=== PATIENT | male | born 1965 | race African-American/Black ===

== ENCOUNTER 2016-10-09 06:52 | Emergency (ER) | payer MEDICARE, MEDICAID ==
[~2016-10-09] VITALS: Ht 172.7 cm; Wt 115.8 kg
[~2016-10-09 06:52] MED LIST: ALBU0.63 NEB; ALBU8.5H3 INH; AMLO10TA2 PO; CYCL-259 PO; FLUT1DIS3 INH; HYDR25TA6 PO; IPRA15SP2 INH; LACT10SO5 PO; LEVO750T26 PO; LISI40TA PO; MORP-52 PO; OXYC-302 PO; OXYC10TA6 PO; OXYC5TAB3 PO; SIMV20TA3 PO; TAMS-11 PO; TRAM100T13 PO
[2016-10-09] MEDS ORDERED: ALBU18HF INH (07:10)
[2016-10-09] MEDS ORDERED: FLUT1BLS INH (07:10)
[2016-10-09] MEDS ORDERED: FLUT1DIS3 INH (07:11)
[2016-10-09] MEDS ORDERED: ALBUTEROL/IPRATROPIUM 2.5MG/0.5MG, 3 ML ONE ×2 (07:18→07:59)
[2016-10-09] MEDS ORDERED: TRAZ100T15 PO (07:19)
[2016-10-09] MEDS ORDERED: ALBUTEROL/IPRATROPIUM 2.5MG/0.5MG, 3 ML NPPB ONE ×2 (07:30→08:00)
[2016-10-09 08:38] VITALS: BP 123/88
== END 2016-10-09 08:40 | disposition home or self-care (01) ==
LOC: ED 08:34
DX: J45.901 Unspecified asthma with (acute) exacerbation (principal); I10 Essential (primary) hypertension
CPT/HCPCS: 93005; 94640; 99284; J7512; J7620

== ENCOUNTER 2017-02-17 14:34 | Inpatient (IN) | payer MEDICARE, MEDICAID ==
[~2017-02-17] VITALS: Ht 172.7 cm; Wt 112.1 kg
[~2017-02-17 14:34] MED LIST changes: +ALBU18HF INH; -ALBU8.5H3 INH; +ALBU8.5H8 INH; +FLUT1BLS INH; +TRAZ100T15 PO
[2017-02-17 14:57] LABS: HEMATOCRIT 48.7 % (39.2-51.8); HEMOGLOBIN 16.5 g/dL (13.7-18.0); WHITE BLOOD COUNT 13.2 x10^3/uL (3.4-10)
[2017-02-17] MEDS ORDERED: SODIUM CHLORIDE FLUSH 10ML SYR IVF ONE (15:00)
[2017-02-17] MEDS ORDERED: SODIUM CHLORIDE 0.9% 1,000ML IVBOLUS ONE ×2 (15:00→20:00)
[2017-02-17 15:56] LABS: ASPARTATE AMINO TRANSFERASE 6 U/L (15-37); BLOOD UREA NITROGEN 56 mg/dL (7-18)
[2017-02-17 16:02] LABS: IS PT STATUS REG ER OR PRE ER? YES
[2017-02-17] MEDS ORDERED: OMNIPAQUE 350 MG/ML, 100ML BOTTLE ONE (16:13)
[2017-02-17] MEDS ORDERED: MORPHINE SULFATE 4 MG/ML, 1ML IVPush PRN (18:00)
[2017-02-17] MEDS ORDERED: METRONIDAZOLE PMX 500MG/100ML 100 ML IVPB ONE (18:00)
[2017-02-17] MEDS ORDERED: ONDANSETRON 2MG/ML, 2ML IVPush ONE (18:00)
[2017-02-17] MEDS ORDERED: METRONIDAZOLE PMX 500MG/100ML 100 ML ONE (18:03)
[2017-02-17] MEDS ORDERED: ONDANSETRON 2MG/ML, 2ML ONE (18:04)
[2017-02-17] MEDS ORDERED: morphine SULFATE 10 MG/ML, 1ML ONE (18:04)
[2017-02-17] MEDS ORDERED: CIPROFLOXACIN/PMX 400MG/200ML 100 ML IVPB ONE (18:30)
[2017-02-17] MEDS ORDERED: CALCIUM GLUCONATE 4.6 MEQ in SODIUM CHLORIDE 0.9% 50 ML IV ONE (18:30)
[2017-02-17] MEDS ORDERED: SODIUM CHLORIDE FLUSH 10ML SYR IVF PRN (19:30)
[2017-02-17] MEDS: SODIUM BICARBONATE 8.4% 75 MEQ in SODIUM CHLORIDE 0.45% 1,000 ML IV SCH (20:22)
[2017-02-17] MEDS: NICOTINE 14MG/24 HR PATCH.TD24 TD SCH (20:30)
[2017-02-17] MEDS ORDERED: BISACODYL 10 MG SUPP PR PRN (20:30)
[2017-02-17] MEDS: HEPARIN 5,000 UNITS/ML, 1ML SQ SCH (20:58)
[2017-02-17] MEDS: METRONIDAZOLE PMX 500MG/100ML 100 ML IV SCH (20:58)
[2017-02-17] MEDS ORDERED: FAMOTIDINE 20 MG/2 ML IVPush SCH (21:00)
[2017-02-17 21:15] VITALS: BP 81/55
[2017-02-17 21:37] LABS: IS PT STATUS REG ER OR PRE ER? NO
[2017-02-17] MEDS: ONDANSETRON 2MG/ML, 2ML IVPush PRN (22:07)
[2017-02-18] MEDS ORDERED: SODIUM CHLORIDE 0.9% 1,000ML IV ONE (00:30)
[2017-02-18] MEDS ORDERED: ALBUTEROL/IPRATROPIUM 2.5MG/0.5MG, 3 ML ONE ×2 (03:14→07:23)
[2017-02-18] MEDS: HEPARIN 5,000 UNITS/ML, 1ML SQ SCH ×3 (04:32→19:41)
[2017-02-18] MEDS: METRONIDAZOLE PMX 500MG/100ML 100 ML IV SCH ×3 (04:32→19:41)
[2017-02-18 04:40] LABS: HEMATOCRIT 43.7 % (39.2-51.8); HEMOGLOBIN 15.1 g/dL (13.7-18.0); WHITE BLOOD COUNT 11.4 x10^3/uL (3.4-10)
[2017-02-18 04:51] LABS: ASPARTATE AMINO TRANSFERASE 13 U/L (15-37); BLOOD UREA NITROGEN 65 mg/dL (7-18)
[2017-02-18 04:57] LABS: IS PT STATUS REG ER OR PRE ER? NO
[2017-02-18] MEDS: SODIUM BICARBONATE 8.4% 75 MEQ in SODIUM CHLORIDE 0.45% 1,000 ML IV SCH (05:15)
[2017-02-18 06:00] VITALS: BP 106/52
[2017-02-18] MEDS ORDERED: SODIUM BICARBONATE 8.4% 75 MEQ in SODIUM CHLORIDE 0.45% 1,000 ML IV SCH (07:00)
[2017-02-18] MEDS ORDERED: MAGNESIUM SULFATE PMX 2GM/50ML 50 ML IV ONE (07:00)
[2017-02-18] MEDS: ALBUTEROL/IPRATROPIUM 2.5MG/0.5MG, 3 ML NPPB SCH ×2 (08:43→19:43)
[2017-02-18] MEDS: ERGOCALCIFEROL 50,000 UNIT CAPSULE PO SCH (09:00)
[2017-02-18] MEDS: FLUTICASONE/VILANTEROL 200-25MCG/INH INH SCH (09:00)
[2017-02-18] MEDS: PANTOPRAZOLE 40 MG IV IVPush SCH (09:59)
[2017-02-18] MEDS: morphine SULFATE 10 MG/ML, 1ML IVPush PRN (10:10)
[2017-02-18] MEDS ORDERED: MIDAZOLAM 1 MG/ML, 5ML ONE (13:27)
[2017-02-18] MEDS ORDERED: FENTANYL PF 100 MCG/2ML ONE (13:27)
[2017-02-18] MEDS ORDERED: SIMETHICONE DROPS 40 MG/0.6 ML BOTTLE ONE (15:04)
[2017-02-18 15:11] LABS: DAU SCREEN DISCLAIMER
[2017-02-18] MEDS: CIPROFLOXACIN/PMX 400MG/200ML 200 ML IV SCH (18:36)
[2017-02-18] MEDS: NICOTINE 14MG/24 HR PATCH.TD24 TD SCH (19:41)
[2017-02-18] MEDS: TAMSULOSIN 0.4 MG CAP.ER.24H PO SCH (19:41)
[2017-02-19 04:00] VITALS: BP 110/64
[2017-02-19] MEDS: HEPARIN 5,000 UNITS/ML, 1ML SQ SCH ×3 (04:06→21:18)
[2017-02-19] MEDS: METRONIDAZOLE PMX 500MG/100ML 100 ML IV SCH ×3 (04:06→21:18)
[2017-02-19 04:13] LABS: HEMATOCRIT 41.4 % (39.2-51.8); WHITE BLOOD COUNT 17.2 x10^3/uL (3.4-10)
[2017-02-19 04:26] LABS: DIFF TOTAL CELLS COUNTED 100 CELL DIFF
[2017-02-19 04:29] LABS: VERIFY COUNTS? YES
[2017-02-19 04:36] LABS: ASPARTATE AMINO TRANSFERASE 16 U/L (15-37); BLOOD UREA NITROGEN 56 mg/dL (7-18)
[2017-02-19] MEDS: ALBUTEROL/IPRATROPIUM 2.5MG/0.5MG, 3 ML NPPB SCH ×2 (09:00→09:48)
[2017-02-19] MEDS: FLUTICASONE/VILANTEROL 200-25MCG/INH INH SCH (09:00)
[2017-02-19] MEDS: PANTOPRAZOLE 40 MG IV IVPush SCH (09:05)
[2017-02-19] MEDS: CIPROFLOXACIN/PMX 400MG/200ML 200 ML IV SCH (18:11)
[2017-02-19] MEDS: ACETAMINOPHEN 325 MG TABLET PO PRN (18:12)
[2017-02-19] MEDS: TAMSULOSIN 0.4 MG CAP.ER.24H PO SCH (19:22)
[2017-02-19] MEDS: ONDANSETRON 2MG/ML, 2ML IVPush PRN (19:31)
[2017-02-19 20:12] VITALS: BP 154/91
[2017-02-19] MEDS: NICOTINE 14MG/24 HR PATCH.TD24 TD SCH (20:30)
[2017-02-19] MEDS: morphine SULFATE 10 MG/ML, 1ML IVPush PRN (22:06)
[2017-02-20 02:05] VITALS: BP 152/79
[2017-02-20] MEDS: HEPARIN 5,000 UNITS/ML, 1ML SQ SCH ×3 (04:19→20:30)
[2017-02-20] MEDS: METRONIDAZOLE PMX 500MG/100ML 100 ML IV SCH ×3 (04:54→20:29)
[2017-02-20 05:32] LABS: HEMATOCRIT 43.9 % (39.2-51.8); HEMOGLOBIN 15.1 g/dL (13.7-18.0); WHITE BLOOD COUNT 17.8 x10^3/uL (3.4-10)
[2017-02-20 05:48] LABS: BLOOD UREA NITROGEN 19 mg/dL (7-18)
[2017-02-20 05:52] LABS: ASPARTATE AMINO TRANSFERASE 12 U/L (15-37)
[2017-02-20 07:25] VITALS: BP 164/100
[2017-02-20] MEDS: ALBUTEROL/IPRATROPIUM 2.5MG/0.5MG, 3 ML NPPB SCH ×2 (09:00→19:35)
[2017-02-20] MEDS: FLUTICASONE/VILANTEROL 200-25MCG/INH INH SCH (09:00)
[2017-02-20] MEDS: PANTOPROZOLE 40MG TABLET PO SCH (09:48)
[2017-02-20] MEDS ORDERED: AMLODIPINE 5 MG TABLET PO SCH (10:30)
[2017-02-20 13:28] VITALS: BP 150/95
[2017-02-20] MEDS: CIPROFLOXACIN/PMX 400MG/200ML 200 ML IV SCH (17:52)
[2017-02-20] MEDS: ACETAMINOPHEN 325 MG TABLET PO PRN (17:58)
[2017-02-20 19:06] VITALS: BP 160/100
[2017-02-20] MEDS: TAMSULOSIN 0.4 MG CAP.ER.24H PO SCH (19:31)
[2017-02-20] MEDS: NICOTINE 14MG/24 HR PATCH.TD24 TD SCH (20:30)
[2017-02-21 02:45] VITALS: BP 164/106
[2017-02-21] MEDS: HEPARIN 5,000 UNITS/ML, 1ML SQ SCH ×3 (04:30→20:30)
[2017-02-21] MEDS: METRONIDAZOLE PMX 500MG/100ML 100 ML IV SCH ×3 (04:34→21:28)
[2017-02-21] MEDS: ACETAMINOPHEN 325 MG TABLET PO PRN ×2 (04:41→19:32)
[2017-02-21 05:26] LABS: HEMATOCRIT 44.5 % (39.2-51.8); HEMOGLOBIN 14.9 g/dL (13.7-18.0); WHITE BLOOD COUNT 15.7 x10^3/uL (3.4-10)
[2017-02-21 05:52] LABS: ASPARTATE AMINO TRANSFERASE 7 U/L (15-37); BLOOD UREA NITROGEN 8 mg/dL (7-18)
[2017-02-21] MEDS: AMLODIPINE 5 MG TABLET PO SCH ×2 (07:30→08:44)
[2017-02-21 08:21] VITALS: BP 154/112
[2017-02-21] MEDS: FLUTICASONE/VILANTEROL 200-25MCG/INH INH SCH (08:38)
[2017-02-21] MEDS: PANTOPROZOLE 40MG TABLET PO SCH (08:38)
[2017-02-21] MEDS: ERGOCALCIFEROL 50,000 UNIT CAPSULE PO SCH (08:38)
[2017-02-21] MEDS: ALBUTEROL/IPRATROPIUM 2.5MG/0.5MG, 3 ML NPPB SCH ×2 (09:00→19:05)
[2017-02-21 13:23] VITALS: BP 149/94
[2017-02-21] MEDS: CIPROFLOXACIN/PMX 400MG/200ML 200 ML IV SCH (18:45)
[2017-02-21] MEDS: TAMSULOSIN 0.4 MG CAP.ER.24H PO SCH (18:48)
[2017-02-21 19:42] VITALS: BP 158/98
[2017-02-21] MEDS: NICOTINE 14MG/24 HR PATCH.TD24 TD SCH (20:30)
[2017-02-22 01:18] VITALS: BP 160/98
[2017-02-22] MEDS: HEPARIN 5,000 UNITS/ML, 1ML SQ SCH ×3 (03:46→20:10)
[2017-02-22] MEDS: METRONIDAZOLE PMX 500MG/100ML 100 ML IV SCH ×3 (05:31→21:45)
[2017-02-22 06:12] LABS: HEMOGLOBIN 15.2 g/dL (13.7-18.0); WHITE BLOOD COUNT 12.4 x10^3/uL (3.4-10)
[2017-02-22 06:23] LABS: BLOOD UREA NITROGEN 5 mg/dL (7-18)
[2017-02-22 07:26] VITALS: BP 157/102
[2017-02-22] MEDS: CIPROFLOXACIN/PMX 400MG/200ML 200 ML IV SCH ×2 (08:02→20:10)
[2017-02-22] MEDS: PANTOPROZOLE 40MG TABLET PO SCH (08:02)
[2017-02-22] MEDS: AMLODIPINE 5 MG TABLET PO SCH (08:03)
[2017-02-22] MEDS: FLUTICASONE/VILANTEROL 200-25MCG/INH INH SCH (08:03)
[2017-02-22] MEDS: ALBUTEROL/IPRATROPIUM 2.5MG/0.5MG, 3 ML NPPB SCH ×2 (08:25→20:00)
[2017-02-22 13:19] VITALS: BP 138/89
[2017-02-22] MEDS: ACETAMINOPHEN 325 MG TABLET PO PRN ×2 (13:35→23:58)
[2017-02-22] MEDS: TAMSULOSIN 0.4 MG CAP.ER.24H PO SCH (18:39)
[2017-02-22] MEDS ORDERED: BISACODYL 10 MG SUPP PR PRN ×2 (19:30→20:00)
[2017-02-22 19:37] VITALS: BP 136/90
[2017-02-22] MEDS: NICOTINE 14MG/24 HR PATCH.TD24 TD SCH (20:10)
[2017-02-23 03:37] VITALS: BP 152/88
[2017-02-23] MEDS: HEPARIN 5,000 UNITS/ML, 1ML SQ SCH ×2 (04:21→12:30)
[2017-02-23 05:13] LABS: HEMATOCRIT 46.5 % (39.2-51.8); HEMOGLOBIN 15.6 g/dL (13.7-18.0); WHITE BLOOD COUNT 13.8 x10^3/uL (3.4-10)
[2017-02-23 05:31] LABS: BLOOD UREA NITROGEN 6 mg/dL (7-18)
[2017-02-23] MEDS: METRONIDAZOLE PMX 500MG/100ML 100 ML IV SCH ×2 (05:59→13:30)
[2017-02-23 07:43] VITALS: BP 142/94
[2017-02-23] MEDS: FLUTICASONE/VILANTEROL 200-25MCG/INH INH SCH (08:49)
[2017-02-23] MEDS: PANTOPROZOLE 40MG TABLET PO SCH (08:49)
[2017-02-23] MEDS: AMLODIPINE 5 MG TABLET PO SCH (08:49)
[2017-02-23] MEDS: CIPROFLOXACIN/PMX 400MG/200ML 200 ML IV SCH (11:40)
[2017-02-23] MEDS ORDERED: AMLO5TAB2 PO (12:13)
[2017-02-23] MEDS ORDERED: PANT40TA5 PO (12:13)
[2017-02-23] MEDS ORDERED: ERGO500017 PO (12:13)
[2017-02-23] MEDS: ALBUTEROL/IPRATROPIUM 2.5MG/0.5MG, 3 ML NPPB SCH (12:35)
[2017-02-23 13:18] VITALS: BP 146/89
== END 2017-02-23 15:24 | disposition home or self-care (01) | DRG 682 ==
LOC: ED 16:26 → EDIP 19:05 → CCU 20:36 → 3NE 02-19 15:53
PROVIDERS: ADMIT Hospitalist; ATTEND Hospitalist
PROC: 02HV33Z Insertion of Infusion Device into Superior Vena Cava, Percutaneous Approach (ICD-10-PCS; principal; 2017-02-17)
PROC: B5181ZA Fluoroscopy of Superior Vena Cava using Low Osmolar Contrast, Guidance (ICD-10-PCS; 2017-02-17)
PROC: 0DJ08ZZ Inspection of Upper Intestinal Tract, Via Natural or Artificial Opening Endoscopic (ICD-10-PCS; 2017-02-18)
DX: N17.0 Acute kidney failure with tubular necrosis (principal); R65.11 Systemic inflammatory response syndrome (SIRS) of non-infectious origin with acute organ dysfunction; K55.059 Acute (reversible) ischemia of intestine, part and extent unspecified; I95.9 Hypotension, unspecified; E87.2 Acidosis; E44.1 Mild protein-calorie malnutrition; E66.01 Morbid (severe) obesity due to excess calories; E83.39 Other disorders of phosphorus metabolism; E87.1 Hypo-osmolality and hyponatremia; E83.42 Hypomagnesemia; E55.9 Vitamin D deficiency, unspecified; E78.5 Hyperlipidemia, unspecified; E83.51 Hypocalcemia; E86.9 Volume depletion, unspecified; K31.89 Other diseases of stomach and duodenum; E79.0 Hyperuricemia without signs of inflammatory arthritis and tophaceous disease; G89.29 Other chronic pain; I10 Essential (primary) hypertension; J44.9 Chronic obstructive pulmonary disease, unspecified; Z87.01 Personal history of pneumonia (recurrent); Z87.11 Personal history of peptic ulcer disease; Z88.0 Allergy status to penicillin; Z68.37 Body mass index [BMI] 37.0-37.9, adult; Z90.49 Acquired absence of other specified parts of digestive tract; Z79.899 Other long term (current) drug therapy; K63.89 Other specified diseases of intestine
CPT/HCPCS: 36415; 36556; 51702; 71010; 71020; 71275; 74000; 74175; 76770; 76937; 77001; 80047; 80048; 80053; 80307; 81003; 82306; 83605; 83690; 83735; 83970; 84100; 84300; 84484; 84550; 85025; 85610; 85651; 85730; 86140; 87040; 87081; 87324; 93005; 94640; 96361; 96365; 96367; 96375; 99152; 99153; 99292; C1894; J0610; J0744; J1644; J2250; J2405; J3010; J7620; Q9967; C1751; C9113; G0479; J1642; J2270; J3475; J7030; S0028

== ENCOUNTER 2017-08-31 17:37 | Emergency (ER) | payer MEDICARE, MEDICAID ==
[~2017-08-31] VITALS: Ht 172.7 cm; Wt 123.4 kg
[~2017-08-31 17:37] MED LIST changes: +ADVAIR; +AMLO5TAB2 PO; +ATROVENT; +AZIT500T5 PO; +ERGO500017 PO; +PANT40TA5 PO; +PRED20TA PO
[2017-08-31] MEDS ORDERED: TAMS-11 PO (19:00)
[2017-08-31] MEDS ORDERED: AMIT25TA PO (19:00)
[2017-08-31] MEDS ORDERED: OXYC10TA6 PO (19:00)
[2017-08-31 19:09] LABS: BASOPHILS # (AUTO) 0.04 x10^3/uL (0-0.1); BASOPHILS % (AUTO) 0 % (0-1); EOSINOPHILS # (AUTO) 1.23 x10^3/uL (0-0.4); EOSINOPHILS % (AUTO) 12 % (1-7); LYMPHOCYTES # (AUTO) 2.42 x10^3/uL (1-3.4); LYMPHOCYTES % (AUTO) 23 % (22-44); MD NO; MEAN CORPUSCULAR HEMOGLOBIN 28.4 pg (27.5-34.5); MEAN CORPUSCULAR HGB CONC 33.5 g/dL (33.2-36.2); MEAN CORPUSCULAR VOLUME 84.8 fL (81-97); MEAN PLATELET VOLUME 8.4 fL (7.4-10.4); MONOCYTES # (AUTO) 0.87 x10^3/uL (0.2-0.8); MONOCYTES % (AUTO) 8 % (2-9); NEUTROPHILS # (AUTO) 5.88 x10^3/uL (1.8-6.8); NEUTROPHILS % (AUTO) 56 % (42-75); PLATELET COUNT 267 x10^3/uL (130-400); RED BLOOD COUNT 5.05 x10^6/uL (4.38-5.82); RED CELL DISTRIBUTION WIDTH 14.6 % (9.4-14.8)
[2017-08-31 19:20] LABS: ALBUMIN 3.3 g/dL (3.4-5.0); ANION GAP 8 mmol/L (5-15); CHLORIDE 107 mmol/L (98-107)
[2017-08-31 19:23] LABS: ALANINE AMINOTRANSFERASE 29 U/L (12-78); ALKALINE PHOSPHATASE 134 U/L (45-117); BILIRUBIN,TOTAL 0.6 mg/dL (0.2-1.0); CREATININE 1.35 mg/dL (0.7-1.3)
[2017-08-31] MEDS ORDERED: OMNIPAQUE 350 MG/ML, 100ML BOTTLE ONE (20:30)
[2017-08-31 21:37] VITALS: BP 122/86
== END 2017-08-31 21:50 | disposition home or self-care (01) ==
LOC: ED 21:17
DX: R10.84 Generalized abdominal pain (principal); R19.7 Diarrhea, unspecified; I10 Essential (primary) hypertension; J44.9 Chronic obstructive pulmonary disease, unspecified; G89.29 Other chronic pain; F17.200 Nicotine dependence, unspecified, uncomplicated; Z90.49 Acquired absence of other specified parts of digestive tract
CPT/HCPCS: 36415; 74021; 74177; 80053; 85025; 99285; Q9967

== ENCOUNTER 2017-09-24 14:43 | Inpatient (IN) | payer MEDICARE, MEDICAID ==
[~2017-09-24] VITALS: Ht 172.7 cm; Wt 126.0 kg
[~2017-09-24 14:43] MED LIST changes: +AMIT25TA PO
[2017-09-24] MEDS ORDERED: SODIUM CHLORIDE FLUSH 10ML SYR IVF ONE (15:00)
[2017-09-24 15:39] LABS: BASOPHILS # (AUTO) 0.02 x10^3/uL (0-0.1); BASOPHILS % (AUTO) 0 % (0-1); EOSINOPHILS # (AUTO) 0.18 x10^3/uL (0-0.4); EOSINOPHILS % (AUTO) 1 % (1-7); LYMPHOCYTES # (AUTO) 1.49 x10^3/uL (1-3.4); LYMPHOCYTES % (AUTO) 11 % (22-44); MD NO; MEAN CORPUSCULAR HEMOGLOBIN 27.9 pg (27.5-34.5); MEAN CORPUSCULAR HGB CONC 33.2 g/dL (33.2-36.2); MEAN CORPUSCULAR VOLUME 84.1 fL (81-97); MEAN PLATELET VOLUME 8.4 fL (7.4-10.4); MONOCYTES # (AUTO) 0.35 x10^3/uL (0.2-0.8); MONOCYTES % (AUTO) 3 % (2-9); NEUTROPHILS # (AUTO) 11.01 x10^3/uL (1.8-6.8); NEUTROPHILS % (AUTO) 84 % (42-75); PLATELET COUNT 340 x10^3/uL (130-400); RED BLOOD COUNT 5.07 x10^6/uL (4.38-5.82); RED CELL DISTRIBUTION WIDTH 14.5 % (9.4-14.8)
[2017-09-24 15:41] LABS: ALBUMIN 3.6 g/dL (3.4-5.0); ANION GAP 7 mmol/L (5-15); CALCIUM 8.2 mg/dL (8.5-10.1); CHLORIDE 103 mmol/L (98-107)
[2017-09-24 15:44] LABS: ALANINE AMINOTRANSFERASE 30 U/L (12-78); ALKALINE PHOSPHATASE 155 U/L (45-117); BILIRUBIN,TOTAL 0.3 mg/dL (0.2-1.0); CREATININE 1.64 mg/dL (0.7-1.3); TOTAL PROTEIN 7.6 g/dL (6.4-8.2)
[2017-09-24] MEDS ORDERED: ALBUTEROL/IPRATROPIUM 2.5MG/0.5MG, 3 ML ONE (16:19)
[2017-09-24] MEDS ORDERED: ALBUTEROL/IPRATROPIUM 2.5MG/0.5MG, 3 ML NPPB ONE (16:30)
[2017-09-24] MEDS ORDERED: ALBUTEROL SULFATE 2.5 MG/3 ML NPPB ONE (16:30)
[2017-09-24] MEDS ORDERED: CEFTRIAXONE PMX 1GM/50ML 50 ML IV ONE (17:00)
[2017-09-24] MEDS ORDERED: CEFTRIAXONE PMX 1GM/50ML 50 ML ONE (17:15)
[2017-09-24] MEDS ORDERED: CEFTRIAXONE PMX 2GM/50ML 50 ML IV SCH (17:30)
[2017-09-24] MEDS ORDERED: AZITHROMYCIN 500 MG in SODIUM CHLORIDE 0.9% 250 ML IV ONE (17:30)
[2017-09-24] MEDS ORDERED: HEPARIN PROTOCOL IIB/IIIA POST-LYTIC MC PRN (17:30)
[2017-09-24] MEDS ORDERED: ONDANSETRON 2MG/ML, 2ML IVPush PRN (17:30)
[2017-09-24] MEDS ORDERED: SODIUM CHLORIDE 0.9% 1,000ML IVBOLUS ONE (17:30)
[2017-09-24 17:45] LABS: INTERNATIONAL NORMALIZED RATIO 1.04 (0.93-1.1); PROTHROMBIN TIME 10.7 Seconds (9.6-11.5)
[2017-09-24] MEDS: CARVEDILOL 6.25 MG TABLET PO SCH (18:00)
[2017-09-24 18:47] VITALS: BP 150/97
[2017-09-24] MEDS ORDERED: HEPARIN 25,000 UNITS/500ML PMX 500 ML IV PRN (19:00)
[2017-09-24] MEDS ORDERED: HEPARIN 5,000 UNITS/ML, 1ML IV ONE (19:00)
[2017-09-24] MEDS ORDERED: ALBUTEROL/IPRATROPIUM 2.5MG/0.5MG, 3 ML NPPB PRN (21:00)
[2017-09-24] MEDS: NICOTINE 21 MG/24 HR PATCH.TD24 TD SCH (21:00)
[2017-09-24] MEDS: ACETAMINOPHEN 325 MG TABLET PO SCH (21:00)
[2017-09-24] MEDS: OXYcodone IR 30 MG TABLET PO PRN (21:00)
[2017-09-24] MEDS ORDERED: AMITRIPTYLINE 25 MG TABLET PO SCH (21:00)
[2017-09-24] MEDS ORDERED: TAMSULOSIN 0.4 MG CAP.ER.24H ONE (23:38)
[2017-09-24] MEDS: SODIUM CHLORIDE 0.9% 1,000 ML IV SCH (23:45)
[2017-09-24] MEDS: TAMSULOSIN 0.4 MG CAP.ER.24H PO SCH (23:46)
[2017-09-24] MEDS: SIMVASTATIN 20 MG TABLET PO SCH (23:46)
[2017-09-25] MEDS ORDERED: AMITRIPTYLINE 25 MG TABLET ONE (00:16)
[2017-09-25] MEDS: AZITHROMYCIN 500 MG in SODIUM CHLORIDE 0.9% 250 ML IV SCH (00:51)
[2017-09-25 02:15] VITALS: BP 159/93
[2017-09-25] MEDS: ACETAMINOPHEN 325 MG TABLET PO SCH ×4 (02:52→20:51)
[2017-09-25] MEDS: OXYcodone IR 30 MG TABLET PO PRN ×3 (02:57→17:22)
[2017-09-25 04:38] LABS: BASOPHILS # (AUTO) 0.02 x10^3/uL (0-0.1); BASOPHILS % (AUTO) 0 % (0-1); EOSINOPHILS # (AUTO) 0.01 x10^3/uL (0-0.4); EOSINOPHILS % (AUTO) 0 % (1-7); LYMPHOCYTES # (AUTO) 1.75 x10^3/uL (1-3.4); LYMPHOCYTES % (AUTO) 14 % (22-44); MD NO; MEAN CORPUSCULAR HEMOGLOBIN 28.4 pg (27.5-34.5); MEAN CORPUSCULAR HGB CONC 33.3 g/dL (33.2-36.2); MEAN CORPUSCULAR VOLUME 85.3 fL (81-97); MEAN PLATELET VOLUME 8.5 fL (7.4-10.4); MONOCYTES # (AUTO) 1.05 x10^3/uL (0.2-0.8); MONOCYTES % (AUTO) 9 % (2-9); NEUTROPHILS % (AUTO) 77 % (42-75); PLATELET COUNT 346 x10^3/uL (130-400); RED BLOOD COUNT 5.23 x10^6/uL (4.38-5.82); RED CELL DISTRIBUTION WIDTH 14.7 % (9.4-14.8)
[2017-09-25 04:46] LABS: ANION GAP 7 mmol/L (5-15); CALCIUM 8.4 mg/dL (8.5-10.1); CHLORIDE 104 mmol/L (98-107); CREATININE 1.45 mg/dL (0.7-1.3)
[2017-09-25] MEDS: ALBUTEROL/IPRATROPIUM 2.5MG/0.5MG, 3 ML NPPB SCH ×4 (05:05→20:00)
[2017-09-25] MEDS: CARVEDILOL 6.25 MG TABLET PO SCH ×2 (07:18→17:22)
[2017-09-25 07:30] VITALS: BP 136/88
[2017-09-25] MEDS ORDERED: HEPARIN 25,000 UNITS/500ML PMX 500 ML IV PRN (08:00)
[2017-09-25] MEDS ORDERED: HEPARIN 5,000 UNITS/ML, 1ML SQ SCH (08:00)
[2017-09-25] MEDS ORDERED: HEPARIN 5,000 UNITS/ML, 1ML IV PRN (08:00)
[2017-09-25] MEDS ORDERED: TAMSULOSIN 0.4 MG CAP.ER.24H PO SCH (09:00)
[2017-09-25] MEDS: AMITRIPTYLINE 25 MG TABLET PO SCH (09:38)
[2017-09-25] MEDS: HEPARIN 5,000 UNITS/ML, 1ML SQ SCH ×2 (09:40→17:22)
[2017-09-25 12:20] VITALS: BP 154/109
[2017-09-25] MEDS: SODIUM CHLORIDE 0.9% 1,000 ML IV SCH (14:40)
[2017-09-25 19:06] VITALS: BP 142/91
[2017-09-25] MEDS: TAMSULOSIN 0.4 MG CAP.ER.24H PO SCH (20:51)
[2017-09-25] MEDS: SIMVASTATIN 20 MG TABLET PO SCH (20:51)
[2017-09-25] MEDS: NICOTINE 21 MG/24 HR PATCH.TD24 TD SCH ×2 (20:51→21:09)
[2017-09-25] MEDS ORDERED: AMITRIPTYLINE 25 MG TABLET PO SCH (21:00)
[2017-09-26] MEDS: AZITHROMYCIN 500 MG in SODIUM CHLORIDE 0.9% 250 ML IV SCH (00:31)
[2017-09-26] MEDS: HEPARIN 5,000 UNITS/ML, 1ML SQ SCH ×2 (00:31→08:35)
[2017-09-26 01:08] VITALS: BP 132/92
[2017-09-26] MEDS: ACETAMINOPHEN 325 MG TABLET PO SCH ×2 (02:30→08:35)
[2017-09-26 05:08] LABS: BASOPHILS # (AUTO) 0.02 x10^3/uL (0-0.1); BASOPHILS % (AUTO) 0 % (0-1); EOSINOPHILS % (AUTO) 8 % (1-7); LYMPHOCYTES # (AUTO) 2.19 x10^3/uL (1-3.4); LYMPHOCYTES % (AUTO) 21 % (22-44); MD NO; MEAN CORPUSCULAR HEMOGLOBIN 28.5 pg (27.5-34.5); MEAN CORPUSCULAR HGB CONC 33.4 g/dL (33.2-36.2); MEAN CORPUSCULAR VOLUME 85.3 fL (81-97); MEAN PLATELET VOLUME 8.4 fL (7.4-10.4); MONOCYTES % (AUTO) 8 % (2-9); NEUTROPHILS # (AUTO) 6.53 x10^3/uL (1.8-6.8); NEUTROPHILS % (AUTO) 63 % (42-75); PLATELET COUNT 300 x10^3/uL (130-400); RED BLOOD COUNT 5.06 x10^6/uL (4.38-5.82)
[2017-09-26] MEDS: CARVEDILOL 6.25 MG TABLET PO SCH (06:28)
[2017-09-26] MEDS: SODIUM CHLORIDE 0.9% 1,000 ML IV SCH (06:29)
[2017-09-26] MEDS ORDERED: LEVOFLOXACIN 500 MG TABLET PO SCH (08:00)
[2017-09-26] MEDS: ALBUTEROL/IPRATROPIUM 2.5MG/0.5MG, 3 ML NPPB SCH ×2 (08:01→11:00)
[2017-09-26 08:08] VITALS: BP 132/91
[2017-09-26] MEDS: AMITRIPTYLINE 25 MG TABLET PO SCH (08:34)
[2017-09-26] MEDS: OXYcodone IR 30 MG TABLET PO PRN (08:35)
[2017-09-26] MEDS ORDERED: LEVO500T47 PO (11:34)
[2017-09-26] MEDS ORDERED: CARV12.543 PO (11:34)
[2017-09-26 12:14] VITALS: BP 100/62
[2017-09-26] MEDS ORDERED: CARVEDILOL 12.5 MG TABLET PO SCH (18:00)
== END 2017-09-26 14:10 | disposition home or self-care (01) | DRG 871 ==
LOC: ED 17:01 → EDIP 17:02 → ED 17:12 → 4WST 18:33
PROVIDERS: ADMIT Internal Medicine; ATTEND Internal Medicine
DX: A41.9 Sepsis, unspecified organism (principal); J18.9 Pneumonia, unspecified organism; J44.1 Chronic obstructive pulmonary disease with (acute) exacerbation; J44.0 Chronic obstructive pulmonary disease with (acute) lower respiratory infection; J96.11 Chronic respiratory failure with hypoxia; Z68.41 Body mass index [BMI] 40.0-44.9, adult; N18.9 Chronic kidney disease, unspecified; E66.01 Morbid (severe) obesity due to excess calories; N40.0 Benign prostatic hyperplasia without lower urinary tract symptoms; E78.5 Hyperlipidemia, unspecified; F17.210 Nicotine dependence, cigarettes, uncomplicated; S39.011A Strain of muscle, fascia and tendon of abdomen, initial encounter; G47.00 Insomnia, unspecified; I12.9 Hypertensive chronic kidney disease with stage 1 through stage 4 chronic kidney disease, or unspecified chronic kidney disease; K59.00 Constipation, unspecified; Z88.0 Allergy status to penicillin; Z90.49 Acquired absence of other specified parts of digestive tract; Z99.81 Dependence on supplemental oxygen; R73.9 Hyperglycemia, unspecified; M48.00 Spinal stenosis, site unspecified
CPT/HCPCS: 36415; 71046; 76700; 78582; 80048; 80053; 83036; 83605; 83690; 84145; 85025; 85520; 85610; 87040; 93005; 94640; 96365; J0456; J0696; J1644; J2405; J7620; A9540; A9558; C9898; J7030; J7050; J7512

== ENCOUNTER 2017-11-10 02:00 | Emergency (ER) | payer MEDICARE, MEDICAID ==
[~2017-11-10] VITALS: Ht 172.7 cm; Wt 120.5 kg
[~2017-11-10 02:00] MED LIST changes: +CARV12.543 PO; +GUAI600T31 PO; +LEVO500T47 PO; +NICO-487 TD; +PRED10TA PO; +TRAZ-137 PO; -TRAZ100T15 PO
[2017-11-10] MEDS ORDERED: ALBUTEROL SULFATE 2.5 MG/3 ML ONE (02:29)
[2017-11-10] MEDS ORDERED: methylPREDNISolone SOD SUCC 125 MG/2 ML IVP ONE (02:30)
[2017-11-10] MEDS ORDERED: ALBUTEROL SULFATE 2.5 MG/3 ML NPPB ONE (02:30)
[2017-11-10] MEDS ORDERED: methylPREDNISolone SOD SUCC 125 MG/2 ML ONE (02:38)
[2017-11-10] MEDS ORDERED: OXYcodone/APAP 5/325MG TABLET ONE (02:50)
[2017-11-10 02:51] LABS: BASOPHILS # (AUTO) 0.07 x10^3/uL (0-0.1); BASOPHILS % (AUTO) 1 % (0-1); EOSINOPHILS # (AUTO) 0.82 x10^3/uL (0-0.4); EOSINOPHILS % (AUTO) 10 % (1-7); LYMPHOCYTES # (AUTO) 1.64 x10^3/uL (1-3.4); LYMPHOCYTES % (AUTO) 20 % (22-44); MD NO; MEAN CORPUSCULAR HEMOGLOBIN 28.5 pg (27.5-34.5); MEAN CORPUSCULAR HGB CONC 33.7 g/dL (33.2-36.2); MEAN CORPUSCULAR VOLUME 84.6 fL (81-97); MEAN PLATELET VOLUME 8.1 fL (7.4-10.4); MONOCYTES # (AUTO) 0.77 x10^3/uL (0.2-0.8); MONOCYTES % (AUTO) 9 % (2-9); NEUTROPHILS # (AUTO) 5.09 x10^3/uL (1.8-6.8); NEUTROPHILS % (AUTO) 61 % (42-75); PLATELET COUNT 288 x10^3/uL (130-400); RED BLOOD COUNT 4.74 x10^6/uL (4.38-5.82); RED CELL DISTRIBUTION WIDTH 14.6 % (9.4-14.8)
[2017-11-10] MEDS ORDERED: OXYcodone/APAP 5/325MG TABLET PO ONE (03:00)
[2017-11-10 03:03] LABS: ALBUMIN 3.3 g/dL (3.4-5.0); ANION GAP 7 mmol/L (5-15); CALCIUM 8.7 mg/dL (8.5-10.1); CHLORIDE 104 mmol/L (98-107); CREATININE 1.23 mg/dL (0.7-1.3)
[2017-11-10 03:07] LABS: TROPONIN I < 0.015 ng/mL (0.000-0.045)
[2017-11-10] MEDS ORDERED: AZITHROMYCIN 250 MG TABLET ONE (03:35)
[2017-11-10 03:37] VITALS: BP 146/91
[2017-11-10] MEDS ORDERED: AZITHROMYCIN 500 MG TABLET PO ONE (04:00)
== END 2017-11-10 04:09 | disposition home or self-care (01) ==
LOC: ED 02:12
DX: J96.11 Chronic respiratory failure with hypoxia (principal); J44.1 Chronic obstructive pulmonary disease with (acute) exacerbation; E78.5 Hyperlipidemia, unspecified; F32.9 Major depressive disorder, single episode, unspecified; I10 Essential (primary) hypertension; Z87.891 Personal history of nicotine dependence; Z86.718 Personal history of other venous thrombosis and embolism
CPT/HCPCS: 36415; 71045; 80048; 82040; 84484; 85025; 93005; 94640; 96374; 99285; J2930; J7613

== ENCOUNTER 2017-11-28 20:50 | Emergency (ER) | payer MEDICARE, MEDICAID ==
[~2017-11-28] VITALS: Ht 172.7 cm; Wt 130.0 kg
[2017-11-28 20:55] VITALS: BP 161/100
[2017-11-28] MEDS ORDERED: HYDROcodone/APAP 5/325 TABLET ONE (21:50)
[2017-11-28] MEDS ORDERED: KETOROLAC 30 MG/1 ML ONE (21:51)
[2017-11-28] MEDS ORDERED: ONDANSETRON ODT 4 MG ONE (21:51)
[2017-11-28] MEDS ORDERED: HYDROcodone/APAP 5/325 TABLET PO ONE (22:00)
[2017-11-28] MEDS ORDERED: KETOROLAC 30 MG/1 ML IM ONE (22:00)
[2017-11-28] MEDS ORDERED: ONDANSETRON ODT 4 MG PO ONE (22:00)
== END 2017-11-28 22:08 | disposition home or self-care (01) ==
LOC: ED 21:33
DX: S83.92XA Sprain of unspecified site of left knee, initial encounter (principal); I10 Essential (primary) hypertension; E78.5 Hyperlipidemia, unspecified; J44.9 Chronic obstructive pulmonary disease, unspecified; Z86.718 Personal history of other venous thrombosis and embolism; Z90.49 Acquired absence of other specified parts of digestive tract; Z88.5 Allergy status to narcotic agent; Z88.0 Allergy status to penicillin; Z88.8 Allergy status to other drugs, medicaments and biological substances; W22.8XXA Striking against or struck by other objects, initial encounter; Y93.89 Activity, other specified; Y92.098 Other place in other non-institutional residence as the place of occurrence of the external cause; Y99.8 Other external cause status
CPT/HCPCS: 99284

== ENCOUNTER 2017-12-23 10:09 | Emergency (ER) | payer MEDICARE, MEDICAID ==
[~2017-12-23] VITALS: Ht 172.7 cm; Wt 127.0 kg
[~2017-12-23 10:09] MED LIST changes: -AMLO10TA2 PO; +AMLO10TA6 PO; -AMLO5TAB2 PO; +AMLO5TAB7 PO
[2017-12-23] MEDS ORDERED: ONDANSETRON ODT 4 MG ONE ×2 (10:46→12:54)
[2017-12-23] MEDS ORDERED: ONDANSETRON ODT 4 MG PO ONE ×2 (11:00→13:00)
[2017-12-23] MEDS ORDERED: SODIUM CHLORIDE FLUSH 10ML SYR IVF ONE (11:00)
[2017-12-23 11:03] LABS: BASOPHILS # (AUTO) 0.06 x10^3/uL (0-0.1); BASOPHILS % (AUTO) 1 % (0-1); EOSINOPHILS # (AUTO) 0.26 x10^3/uL (0-0.4); EOSINOPHILS % (AUTO) 3 % (1-7); LYMPHOCYTES # (AUTO) 2.58 x10^3/uL (1-3.4); LYMPHOCYTES % (AUTO) 25 % (22-44); MD NO; MEAN CORPUSCULAR HEMOGLOBIN 28.2 pg (27.5-34.5); MEAN CORPUSCULAR HGB CONC 33.5 g/dL (33.2-36.2); MEAN CORPUSCULAR VOLUME 84.1 fL (81-97); MEAN PLATELET VOLUME 8.5 fL (7.4-10.4); MONOCYTES # (AUTO) 0.78 x10^3/uL (0.2-0.8); MONOCYTES % (AUTO) 8 % (2-9); NEUTROPHILS # (AUTO) 6.57 x10^3/uL (1.8-6.8); NEUTROPHILS % (AUTO) 64 % (42-75); PLATELET COUNT 275 x10^3/uL (130-400); RED BLOOD COUNT 5.65 x10^6/uL (4.38-5.82); RED CELL DISTRIBUTION WIDTH 14.6 % (9.4-14.8)
[2017-12-23 11:12] LABS: ALANINE AMINOTRANSFERASE 42 U/L (12-78); ALBUMIN 3.8 g/dL (3.4-5.0); ANION GAP 6 mmol/L (5-15); CALCIUM 9.2 mg/dL (8.5-10.1); CHLORIDE 106 mmol/L (98-107)
[2017-12-23 11:14] LABS: ALKALINE PHOSPHATASE 112 U/L (45-117); BILIRUBIN,TOTAL 0.3 mg/dL (0.2-1.0); TOTAL PROTEIN 7.6 g/dL (6.4-8.2)
[2017-12-23] MEDS ORDERED: MORPHINE SULFATE 4 MG/ML, 1ML ONE ×2 (11:49→12:47)
[2017-12-23] MEDS: MORPHINE SULFATE 4 MG/ML, 1ML IVPush PRN ×2 (12:07→12:48)
[2017-12-23 12:47] LABS: MICROSCOPIC INDICATED
[2017-12-23 12:50] LABS: CULTURE INDICATED? NO
[2017-12-23 13:34] VITALS: BP 120/77
== END 2017-12-23 13:35 | disposition home or self-care (01) ==
LOC: ED 13:17
DX: R39.11 Hesitancy of micturition (principal)
CPT/HCPCS: 36415; 74176; 80053; 81001; 83690; 85025; 96374; 96376; 99285; Q0162

== ENCOUNTER 2018-01-09 15:08 | Emergency (ER) | payer MEDICARE, MEDICAID ==
[~2018-01-09] VITALS: Ht 172.7 cm; Wt 125.0 kg
[2018-01-09] MEDS ORDERED: METHYLNALTREXONE 12 MG/0.6 ML SQ ONE ×2 (15:30→15:37)
[2018-01-09] MEDS ORDERED: DICYCLOMINE 20 MG TABLET PO ONE (15:30)
[2018-01-09] MEDS ORDERED: DICYCLOMINE 20 MG TABLET ONE (15:36)
[2018-01-09 15:42] LABS: BASOPHILS # (AUTO) 0.07 x10^3/uL (0-0.1); BASOPHILS % (AUTO) 1 % (0-1); EOSINOPHILS # (AUTO) 0.25 x10^3/uL (0-0.4); EOSINOPHILS % (AUTO) 3 % (1-7); LYMPHOCYTES # (AUTO) 3.45 x10^3/uL (1-3.4); LYMPHOCYTES % (AUTO) 34 % (22-44); MD NO; MEAN CORPUSCULAR HEMOGLOBIN 28.7 pg (27.5-34.5); MEAN CORPUSCULAR HGB CONC 33.4 g/dL (33.2-36.2); MEAN CORPUSCULAR VOLUME 85.8 fL (81-97); MEAN PLATELET VOLUME 8.3 fL (7.4-10.4); MONOCYTES # (AUTO) 1.01 x10^3/uL (0.2-0.8); MONOCYTES % (AUTO) 10 % (2-9); NEUTROPHILS # (AUTO) 5.32 x10^3/uL (1.8-6.8); NEUTROPHILS % (AUTO) 53 % (42-75); PLATELET COUNT 236 x10^3/uL (130-400); RED BLOOD COUNT 4.93 x10^6/uL (4.38-5.82); RED CELL DISTRIBUTION WIDTH 15.7 % (9.4-14.8)
[2018-01-09 15:54] LABS: ALANINE AMINOTRANSFERASE 62 U/L (12-78); ANION GAP 7 mmol/L (5-15); CALCIUM 8.3 mg/dL (8.5-10.1); CHLORIDE 105 mmol/L (98-107); CREATININE 1.41 mg/dL (0.7-1.3)
[2018-01-09 15:57] LABS: ALKALINE PHOSPHATASE 93 U/L (45-117); BILIRUBIN,TOTAL 0.3 mg/dL (0.2-1.0); TOTAL PROTEIN 6.3 g/dL (6.4-8.2)
[2018-01-09 16:22] LABS: MICROSCOPIC AUTO
[2018-01-09 16:26] LABS: CULTURE INDICATED? NO
[2018-01-09] MEDS ORDERED: OMNIPAQUE 350 MG/ML, 100ML BOTTLE ONE (16:43)
[2018-01-09 17:42] VITALS: BP 125/75
== END 2018-01-09 17:44 | disposition home or self-care (01) ==
LOC: ED 15:16
DX: K59.00 Constipation, unspecified (principal); I10 Essential (primary) hypertension; E78.5 Hyperlipidemia, unspecified; Z86.718 Personal history of other venous thrombosis and embolism; J44.9 Chronic obstructive pulmonary disease, unspecified; Z90.49 Acquired absence of other specified parts of digestive tract; F17.200 Nicotine dependence, unspecified, uncomplicated
CPT/HCPCS: 36415; 74177; 80053; 81001; 83690; 85025; 96372; 99285; Q9967

== ENCOUNTER 2018-02-10 22:51 | Emergency (ER) | payer MEDICARE, MEDICAID ==
[~2018-02-10] VITALS: Ht 172.7 cm; Wt 120.0 kg
[2018-02-10 22:53] VITALS: BP 134/92
[2018-02-10] MEDS ORDERED: HYDROcodone/APAP 5/325 TABLET ONE (23:25)
[2018-02-10] MEDS ORDERED: HYDROcodone/APAP 5/325 TABLET PO PRN (23:30)
== END 2018-02-11 00:29 | disposition home or self-care (01) ==
LOC: ED 23:43
DX: S83.412A Sprain of medial collateral ligament of left knee, initial encounter (principal); F17.200 Nicotine dependence, unspecified, uncomplicated; J44.9 Chronic obstructive pulmonary disease, unspecified; J45.909 Unspecified asthma, uncomplicated; Z87.01 Personal history of pneumonia (recurrent); Z88.0 Allergy status to penicillin; Z87.448 Personal history of other diseases of urinary system; Z86.718 Personal history of other venous thrombosis and embolism; X58.XXXA Exposure to other specified factors, initial encounter; Y93.89 Activity, other specified; Y92.89 Other specified places as the place of occurrence of the external cause; Y99.8 Other external cause status
CPT/HCPCS: 99284

== ENCOUNTER 2018-04-10 09:50 | Emergency (ER) | payer MEDICARE, MEDICAID ==
[~2018-04-10] VITALS: Ht 172.7 cm; Wt 128.0 kg
[~2018-04-10 09:50] MED LIST changes: +AMLO-150 PO; -AMLO5TAB7 PO
--- NOTE | 2018-04-10 10:11 | NUR ---
Pt BIBA from home for L rib pain and SOB s/p mech GLF. Pt states he tripped and hit right side on table. Pt also states has been out of home O2 x 12 hours, normally on 4L. Pt Did not take duo neb this AM. Also, productive cough with white sputum x 2 days. Pt 98% 4L NC at this time. Exp wheezes in all garay.
[2018-04-10] MEDS ORDERED: ALBUTEROL/IPRATROPIUM 2.5MG/0.5MG, 3 ML NPPB ONE (11:00)
[2018-04-10] MEDS ORDERED: ALBUTEROL/IPRATROPIUM 2.5MG/0.5MG, 3 ML ONE (11:01)
[2018-04-10 11:44] VITALS: BP 142/68
== END 2018-04-10 12:00 | disposition home or self-care (01) ==
LOC: ED 10:27
DX: J44.1 Chronic obstructive pulmonary disease with (acute) exacerbation (principal); S20.02XA Contusion of left breast, initial encounter; E78.5 Hyperlipidemia, unspecified; F32.9 Major depressive disorder, single episode, unspecified; Z86.718 Personal history of other venous thrombosis and embolism; Z90.49 Acquired absence of other specified parts of digestive tract; X58.XXXA Exposure to other specified factors, initial encounter; Y93.89 Activity, other specified; Y92.89 Other specified places as the place of occurrence of the external cause; Y99.8 Other external cause status
CPT/HCPCS: 71101; 93005; 94640; 99283; J7512; J7620

== ENCOUNTER 2018-04-20 19:04 | Inpatient (IN) | payer MEDICARE, MEDICAID ==
[~2018-04-20] VITALS: Ht 172.7 cm; Wt 126.0 kg
[~2018-04-20 19:04] MED LIST changes: -AMLO10TA6 PO; +AMLO10TA8 PO
--- NOTE | 2018-04-20 19:18 | NUR ---
PT TO ED WITH N/V/D STARTING THIS AM. MODERATE ABD PAIN IN ALL QUADRANTS. CONNECTED TO ALL MONITORS. TACHY, ALL OTHER VSS. MD TO BDSIDE FOR ASSESSMENT. CALL LIGHT WITHIN REACH WILL CONTINUE TO MONITOR.
[2018-04-20] MEDS ORDERED: MORPHINE SULFATE 4 MG/ML, 1ML ONE (19:39)
[2018-04-20] MEDS ORDERED: ONDANSETRON 2MG/ML, 2ML ONE (19:39)
[2018-04-20 19:54] LABS: MEAN CORPUSCULAR HEMOGLOBIN 27.8 pg (27.5-34.5); MEAN CORPUSCULAR HGB CONC 32.8 g/dL (33.2-36.2); MEAN CORPUSCULAR VOLUME 84.8 fL (81-97); MEAN PLATELET VOLUME 8.9 fL (7.4-10.4); PLATELET COUNT 266 x10^3/uL (130-400); RED BLOOD COUNT 6.23 x10^6/uL (4.38-5.82); RED CELL DISTRIBUTION WIDTH 15.3 % (9.4-14.8)
[2018-04-20] MEDS ORDERED: SODIUM CHLORIDE FLUSH 10ML SYR IVF ONE (20:00)
[2018-04-20] MEDS ORDERED: ONDANSETRON 2MG/ML, 2ML IVPush ONE (20:00)
[2018-04-20] MEDS ORDERED: MORPHINE SULFATE 4 MG/ML, 1ML IVPush PRN (20:00)
[2018-04-20] MEDS ORDERED: SODIUM CHLORIDE 0.9% 1,000ML IVBOLUS ONE (20:00)
[2018-04-20 20:03] LABS: INTERNATIONAL NORMALIZED RATIO 1.1 (0.93-1.1); PROTHROMBIN TIME 11.6 Seconds (9.6-11.5)
--- NOTE | 2018-04-20 20:03 | NUR ---
PT TO IMAGING.
[2018-04-20 20:06] LABS: ALANINE AMINOTRANSFERASE 37 U/L (12-78); ALBUMIN 3.5 g/dL (3.4-5.0); ANION GAP 6 mmol/L (5-15); CALCIUM 9.1 mg/dL (8.5-10.1); CHLORIDE 103 mmol/L (98-107); CREATININE 1.84 mg/dL (0.7-1.3)
[2018-04-20 20:08] LABS: ALKALINE PHOSPHATASE 155 U/L (45-117); TOTAL PROTEIN 7.7 g/dL (6.4-8.2)
--- NOTE | 2018-04-20 20:16 | NUR ---
PT UP TO RESTROOM. REFUSING ASSISTANCE AT THIS TIME.
[2018-04-20 20:20] LABS: MD YES
[2018-04-20 20:21] LABS: BAND#(MANUAL) 0.11 x10^3/uL; BANDS%(MANUAL) 1 % (0-7); EOS#(MANUAL) 0.11 x10^3/uL (0.0-0.4); EOS% (MANUAL) 1 % (1-7); LYMPH#(MANUAL) 1.82 x10^3/uL (1-3.4); LYMPHS% (MANUAL) 17 % (22-44)
[2018-04-20 20:23] LABS: MONOS#(MANUAL) 1.39 x10^3/uL (0.3-2.7); MONOS% (MANUAL) 13 % (2-9); SEG#(MANUAL) 7.28 x10^3/uL (1.8-6.8); SEGS% (MANUAL) 68 % (42-75)
[2018-04-20 20:24] LABS: <PLATELET ESTIMATE> ADEQUATE; <PLT MORPHOLOGY> NORMAL PLT MORPH
--- NOTE | 2018-04-20 20:39 | NUR ---
PT MEDICATED AT THIS MTIME. MD TO BEDSIDE TO UPDATE ON POC.
[2018-04-20 20:57] LABS: <RBC MORPHOLOGY> NORMAL
[2018-04-20] MEDS ORDERED: SODIUM CHLORIDE 0.9% 1,000 ML IV ONE (21:01)
--- NOTE | 2018-04-20 21:10 | NUR ---
PT TAKEN TO CT
[2018-04-20] MEDS ORDERED: L.E.T SOLUTION TP ONE (21:26)
[2018-04-20] MEDS ORDERED: SODIUM CHLORIDE 0.9% 1,000 ML IV SCH (21:38)
--- NOTE | 2018-04-20 21:55 | NUR ---
REPORT GIVEN TO CHRISTIAN MONTANEZ, PT READY FOR TRANSPORT UP TO FLOOR
[2018-04-20] MEDS ORDERED: hydrALAzine 20 MG/ML, 1ML IVPush PRN (22:00)
[2018-04-20] MEDS ORDERED: morphine SULFATE 10 MG/ML, 1ML IVPush PRN (22:00)
[2018-04-20] MEDS ORDERED: BISACODYL 10 MG SUPP PR SCH (22:00)
[2018-04-20] MEDS ORDERED: ONDANSETRON 2MG/ML, 2ML IVPush PRN (22:00)
[2018-04-20] MEDS ORDERED: NICOTINE 21 MG/24 HR PATCH.TD24 TD SCH (22:00)
[2018-04-20 22:41] VITALS: BP 112/73
[2018-04-21] MEDS ORDERED: LORazepam 2 MG/ML, 1ML IVPush PRN
[2018-04-21] MEDS ORDERED: LORazepam 2 MG/ML, 1ML IVPush ONE
== END 2018-04-21 02:03 | disposition left against medical advice (07) | DRG 388 ==
LOC: ED 19:29 → EDIP 20:58 → 4NOR 22:11
PROVIDERS: ADMIT Hospitalist; ATTEND Hospitalist
DX: K56.600 Partial intestinal obstruction, unspecified as to cause (principal); K29.01 Acute gastritis with bleeding; N17.9 Acute kidney failure, unspecified; K92.0 Hematemesis; Z68.41 Body mass index [BMI] 40.0-44.9, adult; M48.00 Spinal stenosis, site unspecified; E66.01 Morbid (severe) obesity due to excess calories; E78.5 Hyperlipidemia, unspecified; Z53.21 Procedure and treatment not carried out due to patient leaving prior to being seen by health care provider; F17.210 Nicotine dependence, cigarettes, uncomplicated; N18.3 Chronic kidney disease, stage 3 (moderate); I12.9 Hypertensive chronic kidney disease with stage 1 through stage 4 chronic kidney disease, or unspecified chronic kidney disease; J44.9 Chronic obstructive pulmonary disease, unspecified; N40.0 Benign prostatic hyperplasia without lower urinary tract symptoms; Z90.49 Acquired absence of other specified parts of digestive tract; Z80.8 Family history of malignant neoplasm of other organs or systems; Z88.0 Allergy status to penicillin
CPT/HCPCS: 36415; 74021; 74176; 80053; 83605; 83690; 85025; 85610; 96361; 96374; 96375; G0378; J2405; J2060; J2270; J7030

== ENCOUNTER → 2018-07-01 | Outpatient (CLI) | payer MEDICARE, MEDICAID | END | disposition home or self-care (01) | LOC: CFH 11:49 | PROVIDERS: ATTEND Registered Nurse | DX: I13.10 Hypertensive heart and chronic kidney disease without heart failure, with stage 1 through stage 4 chronic kidney disease, or unspecified chronic kidney disease (principal); R91.8 Other nonspecific abnormal finding of lung field; E78.5 Hyperlipidemia, unspecified; E66.9 Obesity, unspecified; J44.9 Chronic obstructive pulmonary disease, unspecified; J96.10 Chronic respiratory failure, unspecified whether with hypoxia or hypercapnia; N18.2 Chronic kidney disease, stage 2 (mild); Z87.891 Personal history of nicotine dependence | CPT/HCPCS: 71250; 76706; C8929; Q9957 ==

== ENCOUNTER 2018-07-10 20:17 | Emergency (ER) | payer MEDICARE, MEDICAID ==
[~2018-07-10] VITALS: Ht 172.7 cm; Wt 129.1 kg
[2018-07-10] MEDS ORDERED: AMLO2.5T5 PO (20:31)
--- NOTE | 2018-07-10 21:01 | NUR ---
PT TO ROOM FROM LOBBY
[2018-07-10 21:09] LABS: BASOPHILS # (AUTO) 0.08 x10^3/uL (0-0.1); BASOPHILS % (AUTO) 1 % (0-1); EOSINOPHILS # (AUTO) 0.53 x10^3/uL (0-0.4); EOSINOPHILS % (AUTO) 7 % (1-7); LYMPHOCYTES # (AUTO) 2.49 x10^3/uL (1-3.4); LYMPHOCYTES % (AUTO) 31 % (22-44); MD NO; MEAN CORPUSCULAR HEMOGLOBIN 27.6 pg (27.5-34.5); MEAN CORPUSCULAR HGB CONC 33.6 g/dL (33.2-36.2); MEAN CORPUSCULAR VOLUME 82.1 fL (81-97); MEAN PLATELET VOLUME 8.8 fL (7.4-10.4); MONOCYTES # (AUTO) 0.56 x10^3/uL (0.2-0.8); MONOCYTES % (AUTO) 7 % (2-9); NEUTROPHILS # (AUTO) 4.35 x10^3/uL (1.8-6.8); NEUTROPHILS % (AUTO) 54 % (42-75); PLATELET COUNT 302 x10^3/uL (130-400); RED BLOOD COUNT 5.74 x10^6/uL (4.38-5.82); RED CELL DISTRIBUTION WIDTH 15.9 % (9.4-14.8)
[2018-07-10 21:17] LABS: ALANINE AMINOTRANSFERASE 31 U/L (12-78); ALBUMIN 3.6 g/dL (3.4-5.0); ANION GAP 4 mmol/L (5-15); CALCIUM 8.6 mg/dL (8.5-10.1); CHLORIDE 105 mmol/L (98-107); CREATININE 1.48 mg/dL (0.7-1.3)
--- NOTE | 2018-07-10 21:17 | NUR ---
PT TO XRAY
[2018-07-10 21:22] LABS: ALKALINE PHOSPHATASE 182 U/L (45-117); BILIRUBIN,TOTAL 0.3 mg/dL (0.2-1.0); TOTAL PROTEIN 7.6 g/dL (6.4-8.2); TROPONIN I < 0.015 ng/mL (0.000-0.045)
--- NOTE | 2018-07-10 21:41 | NUR ---
PT PRESENTS TO ED WITH C/O LEFT UPPER AND LEFT LOWER ABD PAIN X 2 WEEKS. PT A&O, RESPS EVEN AND UNLABORED. ALL MONITORS IN PLACE, PT SINUS TACH RATE 100'S WITH NO ECTOPY. EDMD PERRY AT BEDSIDE TO UPDATE PT WITH RESULTS AND POC.
[2018-07-10 21:44] VITALS: BP 127/82
--- NOTE | 2018-07-10 21:53 | NUR ---
PT REQUESTING TO SEE MD AGAIN FOR MORE QUESTIONS, WILL NOT ALLOW RN TO RELAY QUESTIONS. EDMD PERRY NOTIFIED.
--- NOTE | 2018-07-10 22:15 | NUR ---
PT SPOKE WITH MD, PT STATES ALL QUESTIONS ANSWERED. AT TIME OF DISCHARGE, PT REQUESTS BREATHING TREATMENT FOR HIS ASTHMA. PT IS A&O, RESPS EVEN AND UNLABORED, SPEAKING IN FULL SENTENCES WITHOUT DIFFICULTY. MD AMADOR INFORMED OF PT REQUEST, MD DECLINES TO ORDER BREATHING TX. PT GIVEN DC INSTRUCTIONS AND SCRIPT, PT EDUCATED REGARDING DC RX FOR PRILOSEC, CLARITHROMYCIN, METRONIDAZOLE AND MIRALAX RX. PT AMB TO DC WITH STEADY GAIT, ACCOMPANIED BY FAMILY. LELO AT DC.
== END 2018-07-10 22:16 | disposition home or self-care (01) ==
LOC: ED 21:05
DX: K25.3 Acute gastric ulcer without hemorrhage or perforation (principal); K59.00 Constipation, unspecified; I10 Essential (primary) hypertension; E78.5 Hyperlipidemia, unspecified; J44.9 Chronic obstructive pulmonary disease, unspecified; E66.9 Obesity, unspecified; Z68.41 Body mass index [BMI] 40.0-44.9, adult; Z87.01 Personal history of pneumonia (recurrent); Z90.49 Acquired absence of other specified parts of digestive tract; Z86.718 Personal history of other venous thrombosis and embolism
CPT/HCPCS: 36415; 71046; 74021; 80053; 83690; 84484; 85025; 86677; 93005; 99284

== ENCOUNTER 2018-07-13 23:56 | Emergency (ER) | payer MEDICAID, MEDICARE ==
[~2018-07-13] VITALS: Ht 172.7 cm; Wt 132.1 kg
[~2018-07-13 23:56] MED LIST changes: +AMLO2.5T5 PO
[2018-07-14] MEDS ORDERED: OXYC-307 PO (00:11)
[2018-07-14] MEDS ORDERED: INHALER (00:11)
[2018-07-14] MEDS ORDERED: ALBU18HF INH (00:11)
--- NOTE | 2018-07-14 00:12 | NUR ---
BIB EMS WITH [facility]. HAVING INCREASED SOB. PRODUCTIVE COUGH. HOME OXYGEN 4L.
[2018-07-14] MEDS ORDERED: ALBUTEROL/IPRATROPIUM 2.5MG/0.5MG, 3 ML ONE (00:24)
[2018-07-14] MEDS ORDERED: CEFTRIAXONE PMX 1GM/50ML 50 ML ONE (00:29)
[2018-07-14] MEDS ORDERED: ALBUTEROL SULFATE 2.5 MG/3 ML NPPB SCH (00:30)
[2018-07-14] MEDS ORDERED: AZITHROMYCIN 500 MG in SODIUM CHLORIDE 0.9% 250 ML IVPB ONE (00:30)
[2018-07-14] MEDS ORDERED: methylPREDNISolone SOD SUCC 125 MG/2 ML ONE (00:30)
[2018-07-14] MEDS ORDERED: CEFTRIAXONE PMX 1GM/50ML 50 ML IVPB ONE (00:30)
[2018-07-14] MEDS ORDERED: methylPREDNISolone SOD SUCC 125 MG/2 ML IVP ONE (00:30)
[2018-07-14] MEDS ORDERED: ASPIRIN 81 MG TABLET CHEW ONE (00:30)
[2018-07-14] MEDS ORDERED: IPRATROPIUM 0.5 MG/2.5 ML INHA NPPB ONE (00:30)
[2018-07-14] MEDS ORDERED: ASPIRIN 81 MG TABLET CHEW PO ONE (00:30)
--- NOTE | 2018-07-14 00:52 | NUR ---
COCO STARTED. VSS. UPDATED ON POC
[2018-07-14 00:54] LABS: BASOPHILS # (AUTO) 0.11 x10^3/uL (0-0.1); BASOPHILS % (AUTO) 1 % (0-1); EOSINOPHILS # (AUTO) 0.66 x10^3/uL (0-0.4); EOSINOPHILS % (AUTO) 7 % (1-7); LYMPHOCYTES # (AUTO) 2.24 x10^3/uL (1-3.4); LYMPHOCYTES % (AUTO) 25 % (22-44); MD NO; MEAN CORPUSCULAR HEMOGLOBIN 27.6 pg (27.5-34.5); MEAN CORPUSCULAR HGB CONC 33.6 g/dL (33.2-36.2); MEAN PLATELET VOLUME 8.4 fL (7.4-10.4); MONOCYTES # (AUTO) 0.91 x10^3/uL (0.2-0.8); MONOCYTES % (AUTO) 10 % (2-9); NEUTROPHILS # (AUTO) 5.05 x10^3/uL (1.8-6.8); NEUTROPHILS % (AUTO) 56 % (42-75); PLATELET COUNT 288 x10^3/uL (130-400); RED BLOOD COUNT 5.53 x10^6/uL (4.38-5.82); RED CELL DISTRIBUTION WIDTH 15.9 % (9.4-14.8)
[2018-07-14 00:59] LABS: ALANINE AMINOTRANSFERASE 25 U/L (12-78); ALBUMIN 3.6 g/dL (3.4-5.0); ANION GAP 5 mmol/L (5-15); CALCIUM 8.4 mg/dL (8.5-10.1); CHLORIDE 104 mmol/L (98-107); CREATININE 1.49 mg/dL (0.7-1.3)
[2018-07-14 01:03] LABS: ALKALINE PHOSPHATASE 168 U/L (45-117); BILIRUBIN,TOTAL 0.5 mg/dL (0.2-1.0); TOTAL PROTEIN 7.2 g/dL (6.4-8.2); TROPONIN I < 0.015 ng/mL (0.000-0.045)
[2018-07-14] MEDS ORDERED: AZITHROMYCIN 500 MG TABLET ONE (01:27)
[2018-07-14] MEDS ORDERED: AZITHROMYCIN 500 MG TABLET PO ONE (01:30)
[2018-07-14 01:34] VITALS: BP 118/74
--- NOTE | 2018-07-14 01:44 | NUR ---
PT GIVEN TAXI VOUCHER FOR SAFE DC.
== END 2018-07-14 01:45 | disposition home or self-care (01) ==
LOC: ED 07-14 00:58
DX: J44.1 Chronic obstructive pulmonary disease with (acute) exacerbation (principal); I10 Essential (primary) hypertension; E78.5 Hyperlipidemia, unspecified; F32.9 Major depressive disorder, single episode, unspecified; Z90.49 Acquired absence of other specified parts of digestive tract; F17.200 Nicotine dependence, unspecified, uncomplicated; Z86.718 Personal history of other venous thrombosis and embolism
CPT/HCPCS: 36600; 71045; 80053; 82803; 83880; 84484; 85025; 87040; 93005; 94640; 96365; 96375; 99284; J0696; J2930

== ENCOUNTER → 2018-07-29 | Outpatient (CLI) | payer MEDICARE, MEDICAID ==
[~2018-07-29] MED LIST changes: +GUAI400T66 PO; +INHALER; +OXYC-307 PO; +Oxygen NAS
== END | disposition home or self-care (01) ==
LOC: STAR 11:14
PROVIDERS: ATTEND Internal Medicine
DX: Z01.818 Encounter for other preprocedural examination (principal); Z12.11 Encounter for screening for malignant neoplasm of colon; R00.0 Tachycardia, unspecified; Z88.0 Allergy status to penicillin; Z87.19 Personal history of other diseases of the digestive system
CPT/HCPCS: 93005

== ENCOUNTER 2018-08-08 14:56 | Emergency (ER) | payer MEDICARE, MEDICAID ==
[~2018-08-08] VITALS: Ht 172.7 cm; Wt 128.6 kg
[2018-08-08] MEDS ORDERED: ALBUTEROL SULFATE 2.5 MG/3 ML NPPB SCH (15:00)
[2018-08-08] MEDS ORDERED: SODIUM CHLORIDE FLUSH 10ML SYR IVF ONE (15:00)
--- NOTE | 2018-08-08 15:00 | NUR ---
PT BIB [facility] FROM HOME WITH C/O BILAT LEG SWELLING X3 DAYS. PT BELIEVES SWELLING MAY BE R/T CHANGING BP MED FROM LISINOPRIL TO AMLODIPINE. PT ALSO C/O DIFFICULTY BREATHING LAST NIGHT AND TODAY. HX COPD, HTN, HLD. EMS FOUND PT TO BE WHEEZING, SPO2 92% ON HOME O2 3L. WAS GIVEN ALBUTEROL TX WITH SPO2 IMPROVING TO 96%. PT ARRIVES TO ED A&OX4, SPEAKING IN FULL SENTENCES, WHEEZING NOTED. O2 IN PLACE AT 4L NC.
[2018-08-08] MEDS ORDERED: ALBUTEROL/IPRATROPIUM 2.5MG/0.5MG, 3 ML ONE (15:16)
[2018-08-08 15:22] LABS: BASOPHILS # (AUTO) 0.05 x10^3/uL (0-0.1); BASOPHILS % (AUTO) 1 % (0-1); EOSINOPHILS # (AUTO) 0.63 x10^3/uL (0-0.4); EOSINOPHILS % (AUTO) 8 % (1-7); LYMPHOCYTES # (AUTO) 2.41 x10^3/uL (1-3.4); LYMPHOCYTES % (AUTO) 29 % (22-44); MD NO; MEAN CORPUSCULAR HEMOGLOBIN 27.9 pg (27.5-34.5); MEAN CORPUSCULAR HGB CONC 33.6 g/dL (33.2-36.2); MEAN PLATELET VOLUME 8.2 fL (7.4-10.4); MONOCYTES # (AUTO) 0.88 x10^3/uL (0.2-0.8); MONOCYTES % (AUTO) 10 % (2-9); NEUTROPHILS % (AUTO) 53 % (42-75); PLATELET COUNT 296 x10^3/uL (130-400); RED BLOOD COUNT 5.48 x10^6/uL (4.38-5.82); RED CELL DISTRIBUTION WIDTH 16.9 % (9.4-14.8)
[2018-08-08 15:28] LABS: CHLORIDE 103 mmol/L (98-107)
[2018-08-08] MEDS ORDERED: ALBUTEROL/IPRATROPIUM 2.5MG/0.5MG, 3 ML NEB ONE (15:30)
[2018-08-08 15:34] LABS: ALANINE AMINOTRANSFERASE 29 U/L (12-78); ALBUMIN 3.4 g/dL (3.4-5.0); ANION GAP 7 mmol/L (5-15); CALCIUM 8.7 mg/dL (8.5-10.1); CREATININE 1.32 mg/dL (0.7-1.3)
[2018-08-08 15:38] LABS: ALKALINE PHOSPHATASE 156 U/L (45-117); BILIRUBIN,TOTAL 0.4 mg/dL (0.2-1.0); TOTAL PROTEIN 7.5 g/dL (6.4-8.2); TROPONIN I < 0.015 ng/mL (0.000-0.045)
[2018-08-08 15:41] VITALS: BP 119/80
[2018-08-08] MEDS ORDERED: AMLO10TA8 PO (15:51)
[2018-08-08] MEDS ORDERED: OXYC10TA6 PO (15:51)
--- NOTE | 2018-08-08 15:52 | NUR ---
ERP WAS IN FOR RE-EVAL. PT STATES HE WANTS TO LEAVE, THAT DOESN'T WANT TO BE ADMITTED TO THE HOSPITAL.
[2018-08-08] MEDS ORDERED: AZITHROMYCIN 500 MG in SODIUM CHLORIDE 0.9% 250 ML IV ONE (16:00)
[2018-08-08] MEDS ORDERED: CEFTRIAXONE PMX 1GM/50ML 50 ML IVPB ONE (16:00)
[2018-08-08] MEDS ORDERED: ALBUTEROL SULFATE 2.5 MG/3 ML ONE (16:18)
--- NOTE | 2018-08-08 16:31 | NUR ---
D/C INSTRUCTIONS, MEDS, & F/U APPT RV'WD WITH PT, HE VERBALIZES UNDERSTANDING. RX GIVEN X3. PT AMBULATED OUT OF ED WITHOUT DIFFICULTY. CAB VOUCHER PROVIDED.
== END 2018-08-08 16:36 | disposition home or self-care (01) ==
LOC: ED 16:26
DX: J43.9 Emphysema, unspecified (principal); R60.0 Localized edema; R06.2 Wheezing; T46.1X5A Adverse effect of calcium-channel blockers, initial encounter; R06.00 Dyspnea, unspecified; F17.210 Nicotine dependence, cigarettes, uncomplicated; I10 Essential (primary) hypertension; F32.9 Major depressive disorder, single episode, unspecified; E78.5 Hyperlipidemia, unspecified; Z86.718 Personal history of other venous thrombosis and embolism; Z90.49 Acquired absence of other specified parts of digestive tract
CPT/HCPCS: 36415; 71045; 80053; 83880; 84484; 85025; 93005; 94640; 99284; J7512; J7620

== ENCOUNTER 2018-08-24 07:58 | Inpatient (IN) | payer MEDICARE, MEDICAID ==
[~2018-08-24] VITALS: Ht 172.7 cm; Wt 123.9 kg
[2018-08-24] MEDS ORDERED: ALBUTEROL/IPRATROPIUM 2.5MG/0.5MG, 3 ML ONE ×2 (08:24→12:21)
--- NOTE | 2018-08-24 08:29 | NUR ---
PT BIB EMS FOR SOB. STARTING APPROX 1 HR BINDERY MANAGER. PT FOUND TO BE 83% SPO2 ON RA. PT STATES HE USES HOME 02 AT 4LPM AT NIGHT. PT GIVEN 1 ALBUTEROL TREATMENT AT HOME. 02 TO LOW 90'S PER EMS AFTER TREATMENT AND 4 LPM O2 EN ROUTE. PT STATES HE HAS AD COUGH/COLD SYMPTOMS X 2 DAYS. DENIES ANY CHEST PAIN. PT TRIAED ON RA UPON ARRIVAL, 77%. PT RESTING ON GURNE, SIDERAILS UP X 2 CALL LIGHT IN REACH. RT TO BEDSIDE AT THIS TIME.
[2018-08-24] MEDS ORDERED: methylPREDNISolone SOD SUCC 125 MG/2 ML IVP ONE (08:30)
[2018-08-24] MEDS ORDERED: MAGNESIUM SULFATE PMX 2GM/50ML 50 ML IVPB ONE (08:30)
[2018-08-24] MEDS ORDERED: SODIUM CHLORIDE FLUSH 10ML SYR IVF ONE (08:30)
[2018-08-24] MEDS ORDERED: ACETAMINOPHEN 500 MG TABLET ONE (08:34)
[2018-08-24] MEDS ORDERED: methylPREDNISolone SOD SUCC 125 MG/2 ML ONE (08:34)
[2018-08-24] MEDS ORDERED: MAGNESIUM SULFATE PMX 2GM/50ML 50 ML ONE (08:35)
[2018-08-24 08:41] LABS: ALBUMIN 3.5 g/dL (3.4-5.0); ANION GAP 6 mmol/L (5-15); CALCIUM 8.7 mg/dL (8.5-10.1); CHLORIDE 104 mmol/L (98-107)
[2018-08-24 08:45] LABS: CREATININE 1.58 mg/dL (0.7-1.3)
[2018-08-24] MEDS ORDERED: AZITHROMYCIN 500 MG in SODIUM CHLORIDE 0.9% 250 ML IV ONE (09:00)
[2018-08-24] MEDS ORDERED: CEFTRIAXONE PMX 1GM/50ML 50 ML IV ONE (09:00)
[2018-08-24] MEDS ORDERED: ACETAMINOPHEN 500 MG TABLET PO ONE (09:00)
--- NOTE | 2018-08-24 09:00 | NUR ---
PER ERPA, WILL WAIT TO ADMIN ABX ORDERED AFTER CBC RESULTS TO DETERMINE NEED FOR BC.
--- NOTE | 2018-08-24 09:25 | NUR ---
Break RN: Pt SPO2 82% w/ good waveform on up to 6 liters while sleeping. Switched by RT to oxymask, pt kaelyn well. States he has NEIDA but is not compliant with wearing CPAP at night. 96% 4 L oxymask.
[2018-08-24 09:30] LABS: MEAN CORPUSCULAR HEMOGLOBIN 28.3 pg (27.5-34.5); MEAN CORPUSCULAR HGB CONC 33.5 g/dL (33.2-36.2); MEAN CORPUSCULAR VOLUME 84.5 fL (81-97); PLATELET COUNT 230 x10^3/uL (130-400); RED BLOOD COUNT 5.43 x10^6/uL (4.38-5.82); RED CELL DISTRIBUTION WIDTH 16.9 % (9.4-14.8)
--- NOTE | 2018-08-24 09:38 | NUR ---
MD to bedside to discuss POC and pt agrees. Pt to be admitted. BC ordered. Will start abx after.
[2018-08-24] MEDS ORDERED: CEFTRIAXONE PMX 1GM/50ML 50 ML ONE (09:48)
--- NOTE | 2018-08-24 09:52 | NUR ---
per pharmacy, Azithromycin and mag sulfate compatable.
[2018-08-24 10:04] LABS: BASOPHILS # (AUTO) 0.03 x10^3/uL (0-0.1); BASOPHILS % (AUTO) 0 % (0-1); EOSINOPHILS # (AUTO) 0.21 x10^3/uL (0-0.4); EOSINOPHILS % (AUTO) 2 % (1-7); LYMPHOCYTES # (AUTO) 1.25 x10^3/uL (1-3.4); LYMPHOCYTES % (AUTO) 13 % (22-44); MD SCAN; MONOCYTES # (AUTO) 1.66 x10^3/uL (0.2-0.8); MONOCYTES % (AUTO) 17 % (2-9); NEUTROPHILS # (AUTO) 6.77 x10^3/uL (1.8-6.8); NEUTROPHILS % (AUTO) 68 % (42-75)
[2018-08-24] MEDS ORDERED: LOSA1TAB19 PO (10:05)
[2018-08-24] MEDS ORDERED: SODIUM CHLORIDE FLUSH 10ML SYR IVF PRN (11:00)
--- NOTE | 2018-08-24 11:13 | NUR ---
Report to LISSETH Coyle
--- NOTE | 2018-08-24 11:29 | NUR ---
Per floor RN, Jonna, unable to continue ED med orders once pt is admitted. Pt has ordered dose of recephin waiting. Azithromycin currently infusing and incompatable with rocephin. Dr Horn advised and order placed for rocephin to be started on floor.
[2018-08-24] MEDS ORDERED: LIDODERM 5% PATCH TD PRN (11:30)
[2018-08-24] MEDS ORDERED: ONDANSETRON ODT 4 MG PO PRN (11:30)
[2018-08-24] MEDS ORDERED: ACETAMINOPHEN 325 MG TABLET PO PRN (11:30)
[2018-08-24] MEDS ORDERED: hydrALAzine 20 MG/ML, 1ML IVPush PRN (11:30)
[2018-08-24] MEDS ORDERED: LABETALOL 5MG/ML, 20ML IVPush PRN (11:30)
[2018-08-24] MEDS ORDERED: DOCUSATE 100 MG CAPSULE PO PRN (11:30)
--- NOTE | 2018-08-24 11:32 | NUR ---
Diet tray given to pt.
[2018-08-24 12:57] VITALS: BP 125/81
[2018-08-24 12:59] VITALS: BP 125/81
[2018-08-24] MEDS ORDERED: ALBUTEROL SULFATE 2.5 MG/3 ML HHN PRN (14:00)
[2018-08-24] MEDS ORDERED: OXYGEN NAS SCH (14:00)
[2018-08-24] MEDS: ALBUTEROL/IPRATROPIUM 2.5MG/0.5MG, 3 ML NPPB SCH ×2 (15:00→20:50)
[2018-08-24] MEDS: HEPARIN 5,000 UNITS/ML, 1ML SQ SCH ×2 (15:10→22:49)
[2018-08-24] MEDS: methylPREDNISolone SOD SUCC 40 MG/ML IVPush SCH ×2 (15:10→20:04)
[2018-08-24] MEDS: DOXYCYCLINE 100 MG in DEXTROSE 5% 250 ML IV SCH (15:10)
[2018-08-24] MEDS: OXYcodone IR 5MG TABLET PO PRN ×2 (17:47→23:49)
[2018-08-24 18:29] VITALS: BP 155/82
[2018-08-24] MEDS ORDERED: AMITRIPTYLINE 25 MG TABLET PO SCH (21:00)
[2018-08-24] MEDS ORDERED: SIMVASTATIN 20 MG TABLET PO SCH (21:00)
[2018-08-25 00:54] VITALS: BP 162/87
[2018-08-25] MEDS: methylPREDNISolone SOD SUCC 40 MG/ML IVPush SCH (02:16)
[2018-08-25] MEDS: DOXYCYCLINE 100 MG in DEXTROSE 5% 250 ML IV SCH (02:17)
[2018-08-25] MEDS ORDERED: TEMAZEPAM 15 MG CAPSULE PO ONE (02:30)
[2018-08-25 05:56] LABS: BASOPHILS # (AUTO) 0.03 x10^3/uL (0-0.1); BASOPHILS % (AUTO) 0 % (0-1); EOSINOPHILS % (AUTO) 0 % (1-7); LYMPHOCYTES # (AUTO) 1.04 x10^3/uL (1-3.4); LYMPHOCYTES % (AUTO) 7 % (22-44); MD NO; MEAN CORPUSCULAR HEMOGLOBIN 28.2 pg (27.5-34.5); MEAN CORPUSCULAR HGB CONC 33.3 g/dL (33.2-36.2); MEAN CORPUSCULAR VOLUME 84.8 fL (81-97); MONOCYTES # (AUTO) 0.37 x10^3/uL (0.2-0.8); MONOCYTES % (AUTO) 3 % (2-9); NEUTROPHILS # (AUTO) 12.54 x10^3/uL (1.8-6.8); NEUTROPHILS % (AUTO) 90 % (42-75); PLATELET COUNT 226 x10^3/uL (130-400); RED BLOOD COUNT 5.23 x10^6/uL (4.38-5.82); RED CELL DISTRIBUTION WIDTH 16.4 % (9.4-14.8)
[2018-08-25 05:57] LABS: ANION GAP 11 mmol/L (5-15); CALCIUM 8.8 mg/dL (8.5-10.1); CHLORIDE 96 mmol/L (98-107)
[2018-08-25 05:59] LABS: CREATININE 1.74 mg/dL (0.7-1.3)
[2018-08-25] MEDS: HEPARIN 5,000 UNITS/ML, 1ML SQ SCH (06:10)
[2018-08-25] MEDS: ALBUTEROL/IPRATROPIUM 2.5MG/0.5MG, 3 ML NPPB SCH (07:15)
[2018-08-25 07:46] VITALS: BP 137/79
[2018-08-25] MEDS: OXYcodone IR 5MG TABLET PO PRN (08:50)
[2018-08-25] MEDS ORDERED: LOSARTAN 50MG TABLET PO SCH (09:00)
[2018-08-25] MEDS ORDERED: HYDROCHLOROTHIAZIDE 12.5 MG CAPSULE PO SCH (09:00)
== END 2018-08-25 09:21 | disposition left against medical advice (07) | DRG 871 ==
LOC: ED 09:30 → EDIP 10:31 → 4EST 11:42
PROVIDERS: ADMIT Internal Medicine; ATTEND Internal Medicine
DX: A41.9 Sepsis, unspecified organism (principal); J15.9 Unspecified bacterial pneumonia; J96.21 Acute and chronic respiratory failure with hypoxia; Z68.41 Body mass index [BMI] 40.0-44.9, adult; J44.0 Chronic obstructive pulmonary disease with (acute) lower respiratory infection; J44.1 Chronic obstructive pulmonary disease with (acute) exacerbation; J98.11 Atelectasis; Z53.21 Procedure and treatment not carried out due to patient leaving prior to being seen by health care provider; E66.01 Morbid (severe) obesity due to excess calories; E78.5 Hyperlipidemia, unspecified; F17.210 Nicotine dependence, cigarettes, uncomplicated; M48.00 Spinal stenosis, site unspecified; G47.33 Obstructive sleep apnea (adult) (pediatric); G89.4 Chronic pain syndrome; I12.9 Hypertensive chronic kidney disease with stage 1 through stage 4 chronic kidney disease, or unspecified chronic kidney disease; N18.2 Chronic kidney disease, stage 2 (mild); N40.0 Benign prostatic hyperplasia without lower urinary tract symptoms; Z87.11 Personal history of peptic ulcer disease; Z91.19 Patient's noncompliance with other medical treatment and regimen; Z99.81 Dependence on supplemental oxygen; Z88.0 Allergy status to penicillin
CPT/HCPCS: 36415; 36600; 71045; 71250; 80048; 82040; 82803; 83605; 83880; 84145; 85025; 85379; 87040; 87070; 87081; 87205; 93005; 94640; 96365; 96366; G0378; J0456; J1644; J7060; J7620; J2920; J2930; J3475; J7050

== ENCOUNTER 2018-10-05 15:33 | Emergency (ER) | payer MEDICARE, MEDICAID ==
[~2018-10-05] VITALS: Ht 172.7 cm; Wt 130.5 kg
[~2018-10-05 15:33] MED LIST changes: +LOSA1TAB19 PO
[2018-10-05 16:08] VITALS: BP 156/103
[2018-10-05 16:33] LABS: BASOPHILS # (AUTO) 0.05 x10^3/uL (0-0.1); BASOPHILS % (AUTO) 0 % (0-1); EOSINOPHILS # (AUTO) 0.24 x10^3/uL (0-0.4); EOSINOPHILS % (AUTO) 2 % (1-7); LYMPHOCYTES # (AUTO) 3.52 x10^3/uL (1-3.4); LYMPHOCYTES % (AUTO) 28 % (22-44); MD NO; MEAN CORPUSCULAR HEMOGLOBIN 28.7 pg (27.5-34.5); MEAN CORPUSCULAR HGB CONC 32.7 g/dL (33.2-36.2); MEAN CORPUSCULAR VOLUME 87.6 fL (81-97); MEAN PLATELET VOLUME 8.1 fL (7.4-10.4); MONOCYTES # (AUTO) 0.94 x10^3/uL (0.2-0.8); MONOCYTES % (AUTO) 8 % (2-9); NEUTROPHILS # (AUTO) 7.65 x10^3/uL (1.8-6.8); NEUTROPHILS % (AUTO) 62 % (42-75); PLATELET COUNT 285 x10^3/uL (130-400); RED BLOOD COUNT 5.49 x10^6/uL (4.38-5.82); RED CELL DISTRIBUTION WIDTH 15.2 % (9.4-14.8)
[2018-10-05 16:44] LABS: ALBUMIN 3.5 g/dL (3.4-5.0); CALCIUM 9.2 mg/dL (8.5-10.1); CREATININE 1.48 mg/dL (0.7-1.3)
[2018-10-05 16:55] LABS: ANION GAP 5 mmol/L (5-15); CHLORIDE 105 mmol/L (98-107)
[2018-10-05] MEDS ORDERED: ALBUTEROL/IPRATROPIUM 2.5MG/0.5MG, 3 ML NPPB ONE (17:00)
[2018-10-05] MEDS ORDERED: ALBUTEROL/IPRATROPIUM 2.5MG/0.5MG, 3 ML ONE (17:14)
--- NOTE | 2018-10-05 17:40 | NUR ---
Patient/Caregiver given discharge instructions and they have confirmed that they understand the instructions. Patient ambulatory with steady gait.
== END 2018-10-05 17:41 | disposition home or self-care (01) ==
LOC: ED 17:38
DX: E11.65 Type 2 diabetes mellitus with hyperglycemia (principal); J43.9 Emphysema, unspecified; I10 Essential (primary) hypertension; E78.5 Hyperlipidemia, unspecified; F32.9 Major depressive disorder, single episode, unspecified; F17.200 Nicotine dependence, unspecified, uncomplicated; Z86.718 Personal history of other venous thrombosis and embolism
CPT/HCPCS: 36415; 80048; 82040; 82962; 85025; 94640; 99283; J7512; J7620

== ENCOUNTER 2018-10-15 16:06 | Emergency (ER) | payer MEDICARE, MEDICAID ==
[~2018-10-15] VITALS: Ht 172.7 cm; Wt 129.0 kg
--- NOTE | 2018-10-15 16:43 | NUR ---
TO RADIOLOGY PER FLAKITO
[2018-10-15] MEDS ORDERED: KETOROLAC 30 MG/1 ML ONE (16:55)
[2018-10-15] MEDS ORDERED: DIAZEPAM 5 MG TABLET ONE (16:55)
[2018-10-15] MEDS ORDERED: DIAZEPAM 5 MG TABLET PO ONE (17:00)
[2018-10-15] MEDS ORDERED: KETOROLAC 30 MG/1 ML IM ONE (17:00)
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
[2018-10-15 17:12] LABS: BASOPHILS # (AUTO) 0.07 x10^3/uL (0-0.1); BASOPHILS % (AUTO) 1 % (0-1); EOSINOPHILS # (AUTO) 0.58 x10^3/uL (0-0.4); EOSINOPHILS % (AUTO) 7 % (1-7); LYMPHOCYTES % (AUTO) 33 % (22-44); MD NO; MEAN CORPUSCULAR HEMOGLOBIN 28.6 pg (27.5-34.5); MEAN CORPUSCULAR HGB CONC 32.5 g/dL (33.2-36.2); MEAN PLATELET VOLUME 8.9 fL (7.4-10.4); MONOCYTES # (AUTO) 0.63 x10^3/uL (0.2-0.8); MONOCYTES % (AUTO) 7 % (2-9); NEUTROPHILS # (AUTO) 4.49 x10^3/uL (1.8-6.8); NEUTROPHILS % (AUTO) 52 % (42-75); PLATELET COUNT 229 x10^3/uL (130-400); RED BLOOD COUNT 5.43 x10^6/uL (4.38-5.82); RED CELL DISTRIBUTION WIDTH 15.7 % (9.4-14.8)
[2018-10-15 17:17] LABS: ALANINE AMINOTRANSFERASE 39 U/L (12-78); ALBUMIN 3.5 g/dL (3.4-5.0); ANION GAP 6 mmol/L (5-15); CALCIUM 9.1 mg/dL (8.5-10.1); CHLORIDE 98 mmol/L (98-107); CREATININE 1.53 mg/dL (0.7-1.3)
[2018-10-15 17:19] LABS: ALKALINE PHOSPHATASE 123 U/L (45-117); BILIRUBIN,TOTAL 0.4 mg/dL (0.2-1.0); TOTAL PROTEIN 7.6 g/dL (6.4-8.2)
[2018-10-15 17:27] LABS: MICROSCOPIC AUTO
[2018-10-15 17:50] LABS: CULTURE INDICATED? YES
[2018-10-15 18:50] VITALS: BP 153/91
== END 2018-10-15 18:52 | disposition home or self-care (01) ==
LOC: ED 16:55
DX: S39.012A Strain of muscle, fascia and tendon of lower back, initial encounter (principal); S39.011A Strain of muscle, fascia and tendon of abdomen, initial encounter; I10 Essential (primary) hypertension; E11.9 Type 2 diabetes mellitus without complications; E78.5 Hyperlipidemia, unspecified; F17.200 Nicotine dependence, unspecified, uncomplicated; Z86.718 Personal history of other venous thrombosis and embolism; X58.XXXA Exposure to other specified factors, initial encounter; Y93.89 Activity, other specified; Y92.89 Other specified places as the place of occurrence of the external cause; Y99.8 Other external cause status
CPT/HCPCS: 36415; 72110; 80053; 81001; 85025; 87086; 96372; 99284; J1885

== ENCOUNTER 2018-11-03 10:54 | Emergency (ER) | payer MEDICARE, MEDICAID ==
[~2018-11-03] VITALS: Ht 172.7 cm; Wt 126.7 kg
[2018-11-03 11:12] VITALS: BP 124/71
== END 2018-11-03 12:53 | disposition home or self-care (01) ==
LOC: ED 12:39
DX: S80.811A Abrasion, right lower leg, initial encounter (principal); L03.90 Cellulitis, unspecified; E78.5 Hyperlipidemia, unspecified; J44.9 Chronic obstructive pulmonary disease, unspecified; F32.9 Major depressive disorder, single episode, unspecified; E11.9 Type 2 diabetes mellitus without complications; Z72.9 Problem related to lifestyle, unspecified; Z86.718 Personal history of other venous thrombosis and embolism; Z90.49 Acquired absence of other specified parts of digestive tract; F17.200 Nicotine dependence, unspecified, uncomplicated; W18.30XA Fall on same level, unspecified, initial encounter; Y93.89 Activity, other specified; Y92.89 Other specified places as the place of occurrence of the external cause; Y99.8 Other external cause status
CPT/HCPCS: 90471; 90715

== ENCOUNTER 2019-04-15 13:28 | Emergency (ER) | payer MEDICARE, MEDICAID ==
[~2019-04-15] VITALS: Ht 172.7 cm; Wt 123.0 kg
[~2019-04-15 13:28] MED LIST changes: +AZIT500T10 PO; -AZIT500T5 PO; +LACT10SO24 PO; -LACT10SO5 PO
[2019-04-15 13:42] VITALS: BP 159/123
== END 2019-04-15 16:13 | disposition home or self-care (01) ==
LOC: ED 16:05
DX: S16.1XXA Strain of muscle, fascia and tendon at neck level, initial encounter (principal); S29.012A Strain of muscle and tendon of back wall of thorax, initial encounter; S39.012A Strain of muscle, fascia and tendon of lower back, initial encounter; S40.012A Contusion of left shoulder, initial encounter; S70.02XA Contusion of left hip, initial encounter; M87.051 Idiopathic aseptic necrosis of right femur; M87.052 Idiopathic aseptic necrosis of left femur; I10 Essential (primary) hypertension; E11.9 Type 2 diabetes mellitus without complications; V89.2XXA Person injured in unspecified motor-vehicle accident, traffic, initial encounter; Y93.89 Activity, other specified; Y92.89 Other specified places as the place of occurrence of the external cause; Y99.8 Other external cause status
CPT/HCPCS: 72072; 72110; 72125; 99284

== ENCOUNTER 2019-06-13 20:45 | Emergency (ER) | payer MEDICAID, MEDICARE ==
[~2019-06-13] VITALS: Ht 172.7 cm; Wt 122.0 kg
[~2019-06-13 20:45] MED LIST changes: -GUAI400T66 PO; +GUAI400T81 PO; +SIMV20TA19 PO; -SIMV20TA3 PO; -TRAZ-137 PO; +TRAZ-175 PO
--- NOTE | 2019-06-13 21:14 | NUR ---
CRUMB IN ROOM FOR EVAL. PT REFUSING ADMISSION. PLAN STEROIDS/NEBS/LABS. PT 84%RA, 95% 5LNC. YELLOW SPUTUM, SAMPLE OBTAINED. HARMAN NOBLE. CALL CAMPA IN REACH. EXP/INSP WHEEZES/COARSE BILAT.
[2019-06-13] MEDS ORDERED: ALBUTEROL/IPRATROPIUM 2.5MG/0.5MG, 3 ML NPPB SCH (21:30)
[2019-06-13] MEDS ORDERED: SODIUM CHLORIDE FLUSH 10ML SYR IVF ONE (21:30)
[2019-06-13] MEDS ORDERED: methylPREDNISolone SOD SUCC 125 MG/2 ML IVPush ONE (21:30)
[2019-06-13] MEDS ORDERED: ALBUTEROL/IPRATROPIUM 2.5MG/0.5MG, 3 ML ONE (21:36)
[2019-06-13] MEDS ORDERED: methylPREDNISolone SOD SUCC 125 MG/2 ML ONE (21:48)
--- NOTE | 2019-06-13 21:51 | NUR ---
XR PENDING LABS DRAWN MEDS PER MAR PT STS FEELS BETTER AFTER NEB TX.
[2019-06-13 22:29] LABS: BASOPHILS # (AUTO) 0.02 x10^3/uL (0-0.1); BASOPHILS % (AUTO) 0 % (0-1); EOSINOPHILS # (AUTO) 0.54 x10^3/uL (0-0.4); EOSINOPHILS % (AUTO) 5 % (1-7); LYMPHOCYTES # (AUTO) 2.59 x10^3/uL (1-3.4); LYMPHOCYTES % (AUTO) 25 % (22-44); MD NO; MEAN CORPUSCULAR HEMOGLOBIN 28.7 pg (27.5-34.5); MEAN CORPUSCULAR HGB CONC 33.4 g/dL (33.2-36.2); MEAN CORPUSCULAR VOLUME 85.8 fL (81-97); MONOCYTES # (AUTO) 0.82 x10^3/uL (0.2-0.8); MONOCYTES % (AUTO) 8 % (2-9); NEUTROPHILS # (AUTO) 6.44 x10^3/uL (1.8-6.8); NEUTROPHILS % (AUTO) 62 % (42-75); PLATELET COUNT 326 x10^3/uL (130-400); RED BLOOD COUNT 4.77 x10^6/uL (4.38-5.82); RED CELL DISTRIBUTION WIDTH 13.4 % (9.4-14.8)
[2019-06-13 22:39] LABS: ALBUMIN 3.3 g/dL (3.4-5.0); ANION GAP 5 mmol/L (5-15); CALCIUM 8.7 mg/dL (8.5-10.1); CHLORIDE 105 mmol/L (98-107)
[2019-06-13 22:45] LABS: ALANINE AMINOTRANSFERASE 25 U/L (12-78); ALKALINE PHOSPHATASE 138 U/L (45-117); BILIRUBIN,TOTAL 0.5 mg/dL (0.2-1.0); CREATININE 1.21 mg/dL (0.7-1.3); TOTAL PROTEIN 7.2 g/dL (6.4-8.2); TROPONIN I 0.028 ng/mL (0.000-0.045)
--- NOTE | 2019-06-13 22:52 | NUR ---
CXR WNL. WBC 10. NAD.
[2019-06-13 23:16] VITALS: BP 169/101
== END 2019-06-13 23:19 | disposition left against medical advice (07) ==
LOC: ED 21:45
DX: J44.1 Chronic obstructive pulmonary disease with (acute) exacerbation (principal); J96.01 Acute respiratory failure with hypoxia; I10 Essential (primary) hypertension; E11.9 Type 2 diabetes mellitus without complications; E78.5 Hyperlipidemia, unspecified; F17.200 Nicotine dependence, unspecified, uncomplicated; R00.0 Tachycardia, unspecified; Z90.49 Acquired absence of other specified parts of digestive tract; Z86.718 Personal history of other venous thrombosis and embolism
CPT/HCPCS: 36415; 71045; 80053; 83880; 84484; 85025; 93005; 94640; 96374; 99285; J2930

== ENCOUNTER 2019-12-15 03:00 | Emergency (ER) | payer MEDICARE, MEDICAID ==
[~2019-12-15] VITALS: Ht 172.7 cm; Wt 120.0 kg
[~2019-12-15 03:00] MED LIST changes: -PANT40TA5 PO; +PANT40TA6 PO
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
[2019-12-15 03:27] LABS: BASOPHILS # (AUTO) 0.04 x10^3/uL (0-0.1); BASOPHILS % (AUTO) 1 % (0-1); EOSINOPHILS # (AUTO) 0.27 x10^3/uL (0-0.4); EOSINOPHILS % (AUTO) 3 % (1-7); LYMPHOCYTES # (AUTO) 3.55 x10^3/uL (1-3.4); LYMPHOCYTES % (AUTO) 40 % (22-44); MD NO; MEAN CORPUSCULAR HEMOGLOBIN 28.6 pg (27.5-34.5); MEAN CORPUSCULAR VOLUME 86.7 fL (81-97); MEAN PLATELET VOLUME 7.6 fL (7.4-10.4); MONOCYTES # (AUTO) 0.56 x10^3/uL (0.2-0.8); MONOCYTES % (AUTO) 6 % (2-9); NEUTROPHILS # (AUTO) 4.53 x10^3/uL (1.8-6.8); NEUTROPHILS % (AUTO) 51 % (42-75); PLATELET COUNT 330 x10^3/uL (130-400); RED BLOOD COUNT 5.27 x10^6/uL (4.38-5.82)
[2019-12-15] MEDS ORDERED: ALBUTEROL/IPRATROPIUM 2.5MG/0.5MG, 3 ML NPPB ONE (03:30)
[2019-12-15] MEDS ORDERED: SODIUM CHLORIDE FLUSH 10ML SYR IVF ONE (03:30)
[2019-12-15] MEDS ORDERED: MORPHINE SULFATE 4 MG/ML, 1ML IVPush PRN (03:30)
--- NOTE | 2019-12-15 03:30 | NUR ---
Patient asleep and in no apparent distress. Attemped to assess pain level. Patient did not respond. MD aware. Preparing breathing treatment admin.
[2019-12-15 03:36] LABS: ALANINE AMINOTRANSFERASE 31 U/L (12-78); ALBUMIN 3.5 g/dL (3.4-5.0); ANION GAP 8 mmol/L (5-15); CALCIUM 8.1 mg/dL (8.5-10.1); CHLORIDE 104 mmol/L (98-107); CREATININE 1.44 mg/dL (0.7-1.3)
[2019-12-15] MEDS ORDERED: ALBUTEROL/IPRATROPIUM 2.5MG/0.5MG, 3 ML ONE (03:37)
[2019-12-15 03:40] LABS: ALKALINE PHOSPHATASE 146 U/L (45-117); BILIRUBIN,TOTAL 1.2 mg/dL (0.2-1.0); TOTAL PROTEIN 7.7 g/dL (6.4-8.2); TROPONIN I < 0.015 ng/mL (0.000-0.045)
[2019-12-15 06:07] VITALS: BP 128/88
== END 2019-12-15 06:11 | disposition home or self-care (01) ==
LOC: ED 05:55
DX: S06.0X9A Concussion with loss of consciousness of unspecified duration, initial encounter (principal); J44.1 Chronic obstructive pulmonary disease with (acute) exacerbation; R06.00 Dyspnea, unspecified; R07.89 Other chest pain; R06.02 Shortness of breath; I10 Essential (primary) hypertension; E11.9 Type 2 diabetes mellitus without complications; F17.210 Nicotine dependence, cigarettes, uncomplicated; E78.5 Hyperlipidemia, unspecified; Z90.49 Acquired absence of other specified parts of digestive tract; Z86.718 Personal history of other venous thrombosis and embolism; X58.XXXA Exposure to other specified factors, initial encounter; Y93.89 Activity, other specified; Y92.89 Other specified places as the place of occurrence of the external cause; Y99.8 Other external cause status
CPT/HCPCS: 36415; 70450; 71045; 80053; 83880; 84484; 85025; 93005; 94640; 99285; 99406

== ENCOUNTER 2020-02-10 22:49 | Emergency (ER) | payer MEDICARE, MEDICAID ==
[~2020-02-10] VITALS: Ht 172.7 cm; Wt 105.0 kg
--- NOTE | 2020-02-10 22:59 | NUR ---
BIB EMS FROM [facility] PT STS FELL ON TWO STEPS WHILE WALKING, PT STS HAD A COUPLE BEERS, UNK IF HIT HEAD LOC, DENIES THINNERS. PT VOMITED ONCE PRIOR TO EMS ARRIVAL. PT RESTING ON GURNEY NO NEEDS AT THIS TIME CONNECTED TO MONITORING VSS
--- NOTE | 2020-02-10 23:55 | NUR ---
PT RESTING ON FLAKITO LIND CALL LIGHT IN REACH NO NEEDS AT THIS TIME
--- NOTE | 2020-02-11 02:32 | NUR ---
PT RESTING ON GURNEY, LINENS CHANGED PT HAD VOMITED ON BED AND FLOOR
--- NOTE | 2020-02-11 03:27 | NUR ---
PT STILL SLEEPING ON GURNEY AROUSABLE TO VERBAL COMMAND
--- NOTE | 2020-02-11 05:22 | NUR ---
PT REFUSING PO FLUIDS/ SNACKS
--- NOTE | 2020-02-11 05:30 | NUR ---
BREATHALYZER DONE PT PIERRE 0.097, PT STS HE WANTS HELP TO STOP DRINKING, PT INFORMED WE WILL PROVIDED RESOURCES AND DISCUSS OPTIONS
--- NOTE | 2020-02-11 06:46 | NUR ---
PT STILL RESTING ON BED NADN NO NEEDS AT THIS TIME, NOW EATING CRACKERS
--- NOTE | 2020-02-11 08:41 | NUR ---
Task RN. Pt d/c'd per ermd orders. Pt with steady gait, able to care for self upon d/c, A&OX4. Pt given bus pass. Pt has all own belongings upon d/c.
[2020-02-11 08:42] VITALS: BP 141/90
== END 2020-02-11 08:44 | disposition home or self-care (01) ==
LOC: ED 02-11 00:09
DX: S39.012A Strain of muscle, fascia and tendon of lower back, initial encounter (principal); S33.5XXA Sprain of ligaments of lumbar spine, initial encounter; M47.9 Spondylosis, unspecified; F10.120 Alcohol abuse with intoxication, uncomplicated; R11.2 Nausea with vomiting, unspecified; R10.30 Lower abdominal pain, unspecified; R51.9 Headache, unspecified; E11.9 Type 2 diabetes mellitus without complications; Y90.0 Blood alcohol level of less than 20 mg/100 ml; W18.39XA Other fall on same level, initial encounter; Y93.89 Activity, other specified; Y92.59 Other trade areas as the place of occurrence of the external cause; Y99.8 Other external cause status
CPT/HCPCS: 72110; 99285

== ENCOUNTER 2020-03-11 11:48 | Emergency (ER) | payer MEDICARE, MEDICAID ==
[~2020-03-11] VITALS: Ht 165.1 cm; Wt 113.5 kg
[~2020-03-11 11:48] MED LIST changes: +AMLO-211 PO; -AMLO10TA8 PO
--- NOTE | 2020-03-11 11:52 | NUR ---
JINNYX1
[2020-03-11] MEDS ORDERED: EMPA25TA PO (12:12)
[2020-03-11] MEDS ORDERED: LOSA25TA25 PO (12:12)
[2020-03-11] MEDS ORDERED: ONDANSETRON 2MG/ML, 2ML IVPush ONE (12:30)
[2020-03-11] MEDS ORDERED: HYDROmorphone 2 MG/ML, 1ML IVPush PRN (12:30)
[2020-03-11] MEDS ORDERED: SODIUM CHLORIDE FLUSH 10ML SYR IVF ONE (12:30)
[2020-03-11] MEDS ORDERED: HYDROmorphone 1 MG/ML, 1ML INJ ONE (12:40)
[2020-03-11] MEDS ORDERED: ONDANSETRON 2MG/ML, 2ML ONE (12:40)
[2020-03-11] MEDS ORDERED: OXYcodone/APAP 10/325MG TABLET ONE (12:51)
[2020-03-11 12:54] VITALS: BP 168/110
[2020-03-11] MEDS ORDERED: OXYcodone/APAP 10/325MG TABLET PO ONE (13:00)
[2020-03-11 13:02] LABS: BASOPHILS % (AUTO) 1 % (0-1); EOSINOPHILS % (AUTO) 2 % (1-7); LYMPHOCYTES % (AUTO) 26 % (22-44); MEAN CORPUSCULAR HEMOGLOBIN 30.3 pg (27.5-34.5); MEAN CORPUSCULAR HGB CONC 34.4 g/dL (33.2-36.2); MEAN PLATELET VOLUME 8.3 fL (7.4-10.4); MONOCYTES % (AUTO) 9 % (2-9); NEUTROPHILS % (AUTO) 62 % (42-75); PLATELET COUNT 248 x10^3/uL (130-400); RED BLOOD COUNT 5.79 x10^6/uL (4.38-5.82); RED CELL DISTRIBUTION WIDTH 14.7 % (9.4-14.8)
--- NOTE | 2020-03-11 13:03 | NUR ---
BIB [facility]. PT C/O LONG AND BLURRED VISION THIS AM. SLURRED SPEECH FOR ONE WEEK. PT REPORTS AFTER THANKSGIVING SOME DIFFICULTY SWALLOWING OR SENSATION OF FOOD GETTING STUCK AND REPORTS THAT IT HAS NOW RESOLVED. PT IN BED WITH CONT CABINET ABRASIVE SANDBLASTER, SPO2, BP Q 30 MIN, SIDE RAILS UP X2, CALL LIGHT IN REACH. PT TALKING ON THE PHONE. LAB IN ROOM.
[2020-03-11 13:06] LABS: MD NO
[2020-03-11 13:15] LABS: ALBUMIN 3.7 g/dL (3.4-5.0); ANION GAP 4 mmol/L (5-15); CALCIUM 9.1 mg/dL (8.5-10.1); CHLORIDE 106 mmol/L (98-107)
[2020-03-11 13:21] LABS: TROPONIN I < 0.015 ng/mL (0.000-0.045)
[2020-03-11] MEDS ORDERED: IBUPROFEN 600 MG TABLET ONE (14:28)
[2020-03-11] MEDS ORDERED: IBUPROFEN 600 MG TABLET PO ONE (14:30)
[2020-03-11] MEDS ORDERED: CEFAZOLIN 1,000 MG ONE (14:35)
== END 2020-03-11 15:06 | disposition home or self-care (01) ==
LOC: ED 12:30
DX: R51.9 Headache, unspecified (principal); H53.8 Other visual disturbances; R94.31 Abnormal electrocardiogram [ECG] [EKG]; I10 Essential (primary) hypertension; E11.9 Type 2 diabetes mellitus without complications; J43.9 Emphysema, unspecified; E78.5 Hyperlipidemia, unspecified; E66.9 Obesity, unspecified; Z86.718 Personal history of other venous thrombosis and embolism; Z90.49 Acquired absence of other specified parts of digestive tract
CPT/HCPCS: 36415; 70450; 80048; 82040; 84484; 85025; 93005; 99285

== ENCOUNTER 2020-07-07 01:50 | Emergency (ER) | payer MEDICARE, MEDICAID ==
[~2020-07-07] VITALS: Ht 172.7 cm; Wt 105.0 kg
[~2020-07-07 01:50] MED LIST changes: +AMLO5TAB4 PO; -CYCL-259 PO; +CYCL10TA2 PO; +DIVA500T4 PO; +EMPA25TA PO; +HYDR-3342 PO; -LISI40TA PO; +LISI40TA9 PO; +LOSA25TA25 PO; +METO25TA35 PO; -NICO-487 TD; +NICO-587 TD; -OXYC-302 PO; -OXYC-307 PO; +OXYC-380 PO; +OXYC1TAB14 PO; -OXYC5TAB3 PO; +OXYC5TAB98 PO
--- NOTE | 2020-07-07 02:14 | NUR ---
Pt with slurry speach, do not smell any alcohol on him. KAPADIA, no facial asymmetry, pupils equal. HOB 30*, IV started, on cr monitor nsr no ectopy. To CT stat.
[2020-07-07 02:16] LABS: BASOPHILS % (AUTO) 1 % (0-1); EOSINOPHILS % (AUTO) 3 % (1-7); LYMPHOCYTES % (AUTO) 30 % (22-44); MEAN CORPUSCULAR HEMOGLOBIN 30.1 pg (27.5-34.5); MEAN CORPUSCULAR HGB CONC 33.9 g/dL (33.2-36.2); MEAN PLATELET VOLUME 8.3 fL (7.4-10.4); MONOCYTES % (AUTO) 9 % (2-9); NEUTROPHILS % (AUTO) 57 % (42-75); PLATELET COUNT 294 x10^3/uL (130-400); RED BLOOD COUNT 5.54 x10^6/uL (4.38-5.82); RED CELL DISTRIBUTION WIDTH 14.4 % (9.4-14.8)
[2020-07-07 02:18] LABS: MD NO
--- NOTE | 2020-07-07 02:32 | NUR ---
HOB to remain 30*, pt states he had more than 1 beer. Informed ERP. Waiting for head CT.
--- NOTE | 2020-07-07 02:51 | NUR ---
Pt back from head CT, no change in assessment. HOB 30*.
[2020-07-07 02:59] LABS: ALBUMIN 3.8 g/dL (3.4-5.0); ANION GAP 9 mmol/L (5-15); CALCIUM 8.6 mg/dL (8.5-10.1); CHLORIDE 106 mmol/L (98-107)
[2020-07-07 03:03] LABS: ALANINE AMINOTRANSFERASE 45 U/L (12-78); ALKALINE PHOSPHATASE 110 U/L (45-117); BILIRUBIN,TOTAL 0.8 mg/dL (0.2-1.0); CREATININE 1.72 mg/dL (0.7-1.3); TOTAL PROTEIN 7.8 g/dL (6.4-8.2)
--- NOTE | 2020-07-07 03:50 | NUR ---
Pt sleeping, Left lateral. Head CT show no bleed. Etoh level 146, VSS. Will continue to monitor.
--- NOTE | 2020-07-07 03:51 | NUR ---
Previous note written by Ирина Dixon Rn. Brian Alicea Rn.
--- NOTE | 2020-07-07 04:10 | NUR ---
IV dc cath intact. Can now smell alcohol on pt. VSS. Pt has steady gait, up and down unit. DC home with instruct, able to safely navigate the community.
[2020-07-07 04:11] VITALS: BP 145/89
== END 2020-07-07 04:12 | disposition home or self-care (01) ==
LOC: ED 02:20
DX: F10.129 Alcohol abuse with intoxication, unspecified (principal); R51.9 Headache, unspecified; R94.31 Abnormal electrocardiogram [ECG] [EKG]; F17.210 Nicotine dependence, cigarettes, uncomplicated; E11.9 Type 2 diabetes mellitus without complications; J43.9 Emphysema, unspecified; I10 Essential (primary) hypertension; E78.5 Hyperlipidemia, unspecified; Z87.11 Personal history of peptic ulcer disease; Y90.0 Blood alcohol level of less than 20 mg/100 ml; Z88.0 Allergy status to penicillin; Z90.49 Acquired absence of other specified parts of digestive tract
CPT/HCPCS: 36415; 70450; 80053; 80320; 85025; 93005; 99285; 99406; G0480

== ENCOUNTER 2020-07-20 16:40 | Emergency (ER) | payer MEDICARE, MEDICAID ==
[~2020-07-20] VITALS: Ht 172.7 cm; Wt 112.7 kg
[~2020-07-20 16:40] MED LIST changes: -OXYC-380 PO; +OXYC-501 PO; +OXYC1TAB12 PO; -OXYC1TAB14 PO
--- NOTE | 2020-07-20 17:02 | NUR ---
ASSUMED CARE OF PT.
[2020-07-20 18:12] LABS: BASOPHILS % (AUTO) 1 % (0-1); EOSINOPHILS % (AUTO) 4 % (1-7); LYMPHOCYTES % (AUTO) 35 % (22-44); MEAN CORPUSCULAR HEMOGLOBIN 30.2 pg (27.5-34.5); MEAN CORPUSCULAR HGB CONC 33.8 g/dL (33.2-36.2); MONOCYTES % (AUTO) 10 % (2-9); NEUTROPHILS % (AUTO) 51 % (42-75); PLATELET COUNT 248 x10^3/uL (130-400); RED BLOOD COUNT 5.27 x10^6/uL (4.38-5.82); RED CELL DISTRIBUTION WIDTH 14.2 % (9.4-14.8)
[2020-07-20 18:14] LABS: ALBUMIN 3.4 g/dL (3.4-5.0); ANION GAP 5 mmol/L (5-15); CALCIUM 8.3 mg/dL (8.5-10.1); CHLORIDE 108 mmol/L (98-107)
--- NOTE | 2020-07-20 18:19 | NUR ---
PT STILL COMFORTABLE. VS UPDATED, NOTIFIED MD OF BP.
--- NOTE | 2020-07-20 18:27 | NUR ---
NOTIFIED RAFFAELE LynnH Addendum: 07/20/20 at 1827 by [place] NOTIFIED RAFFAELE HEADLEY OF BP OF 160/107 AND THAT PATIENT DID NOT TAKE HIS HYDRALAZINE TODAY. FANG TO ORDER HYDRALAZINE.
--- NOTE | 2020-07-20 18:58 | NUR ---
REPORT FROM FABIAN MONTANEZ
[2020-07-20 19:10] VITALS: BP 177/99
--- NOTE | 2020-07-20 19:28 | NUR ---
Patient given discharge instructions and they have confirmed that they understand the instructions. Patient ambulatory with steady gait.
== END 2020-07-20 19:41 | disposition home or self-care (01) ==
LOC: ED 19:39
DX: R55 Syncope and collapse (principal); I10 Essential (primary) hypertension; J44.9 Chronic obstructive pulmonary disease, unspecified; R51.9 Headache, unspecified; R00.0 Tachycardia, unspecified; E11.9 Type 2 diabetes mellitus without complications; E78.5 Hyperlipidemia, unspecified
CPT/HCPCS: 36415; 70450; 80048; 82040; 85025; 93005; 99285

== ENCOUNTER 2020-09-20 13:59 | Emergency (ER) | payer MEDICARE, MEDICAID ==
[~2020-09-20] VITALS: Ht 172.7 cm; Wt 113.1 kg
[~2020-09-20 13:59] MED LIST changes: +OXYC-380 PO; -OXYC-501 PO; -OXYC1TAB12 PO; +OXYC1TAB14 PO
[2020-09-20 14:01] VITALS: BP 117/86
--- NOTE | 2020-09-20 15:15 | NUR ---
TUMBLING MACHINE OPERATOR; CALLED FOR ROOM, NO ANSWER
--- NOTE | 2020-09-20 15:30 | NUR ---
FUNCTIONAL CONSULTANT: CALLED FOR ROOM, NO ANSWER
--- NOTE | 2020-09-20 15:51 | NUR ---
BOARDING MOTHER: CALLED FOR ROOM, NO ANSWER
== END 2020-09-20 15:53 | disposition left against medical advice (07) ==
LOC: ED 14:09
DX: R51.9 Headache, unspecified (principal); M54.2 Cervicalgia; Z53.21 Procedure and treatment not carried out due to patient leaving prior to being seen by health care provider